=== PATIENT | female | born 1985 | race Caucasian/White ===

== ENCOUNTER 2019-10-28 00:32 | Day surgery (SDC) | payer OTHER, SELFPAY ==
[2019-10-19 10:41] VITALS: BMI 34.6
--- NOTE | 2019-10-28 07:37 | PM.IMHP ---
H&P: HPI History of Present Illness Chief complaint: Irregular Period, Lesion of Buttock Narrative: Adriana Duarte is a 34 year old female presents with c/o heavy, irregular bleeding over past 3 months. Cycles have lasted 7-10d every 2 week with clots and severe dysmenorrhea. US shows enlarged uterus with minimal endometrial hypertrophy. Recent pap N. No other specific GI/ c/o. Also with lesion on buttocks which is itching/burning. Review of Systems Review of Systems: All systems reviewed & are unremarkable except as noted in HPI and below PMFSH Past Medical History Medical History Anxiety Asthma exercise induced as child Depression Surgical History Surgical History History of appendectomy Family History Family History Sibling Carcinoma of colon Family history of lymphoma Father Family history of heart disease in male family member before age 55 Acute myocardial infarction Grandparent Diabetes mellitus Other Hypertension Social History Social History Smoking status: Smoker, status unknown Alcohol intake: never Meds Home Medications and Allergies Home Medications Medication Instructions Recorded Confirmed Type buspirone 10 mg PO DAILY 10/19/19 10/19/19 History fluoxetine 20 mg PO DAILY 10/19/19 10/19/19 History venlafaxine 37.5 mg PO DAILY 10/19/19 10/19/19 History Allergies Allergy/AdvReac Type Severity Reaction Status Date / Time diphenhydramine Allergy Unknown Hives Verified 10/19/19 10:43 Penicillins Allergy Unknown Hives Verified 10/19/19 10:43 Sulfa (Sulfonamide Allergy Unknown Hives Verified 10/19/19 10:43 Antibiotics) Latex, Natural Rubber Allergy SKIN Verified 10/19/19 10:43 IRRITATION Exam Const: General: no acute distress Eyes: General: appearance normal, both eyes and all related structures Resp: Auscultation: clear to auscultation bilaterally Cardio: Rate: regular rate Rhythm: regular rhythm GI: GI Palp: Yes Soft to palpation : External Female Exam: normal external appearance Other: uterus enlarged 10-12 week size. Skin: Lesions: lesion noted (on buttocks) Assessment and Plan Assessment and plan (1) Menometrorrhagia: Code(s): N92.1 - Excessive and frequent menstruation with irregular cycle Status: Acute Assessment and Plan: hysteroscope with curettage (2) Skin lesion: Code(s): L98.9 - Disorder of the skin and subcutaneous tissue, unspecified Status: Acute Assessment and Plan: removal
[2019-10-28 11:03] VITALS: BP 112/66; PULSE 74; RESP 18; TEMP 36.7; O2SAT 100
[2019-10-28] MEDS: LACTATED RINGERS 1,000 ML 30 ML IV CONT (11:40)
--- NOTE | 2019-10-28 12:11 | WPDANESEPPF ---
Anes - Initial Pre Proc Eval Procedure: Operation Date: 10/28/19 13:00 Proposed Procedures p Hysteroscopy Dilation and Curettage - Arjun Owen MD s Excision of Lesion of Buttock - Arjun Owen MD Date/Time: 10/28/19 12:11 Surgeon: Arjun Owen MD Pre Op Diagnosis: Irregular Period, Lesion of Buttock Patient Data Age: 34 Gender: F Height: 1.65 m Weight: 92.8 kg Last Vital Signs Temp 36.7 C 10/28/19 11:03 Pulse 74 10/28/19 11:03 Resp 18 10/28/19 11:03 BP 112/66 10/28/19 11:03 Pulse Ox 100 10/28/19 11:03 Allergies Allergy/AdvReac Type Severity Reaction Status Date / Time diphenhydramine Allergy Unknown Hives Verified 10/28/19 11:45 Penicillins Allergy Unknown Hives Verified 10/28/19 11:45 Sulfa (Sulfonamide Allergy Unknown Hives Verified 10/28/19 11:45 Antibiotics) Latex, Natural Rubber Allergy SKIN Verified 10/28/19 11:45 IRRITATION Home Medications Medication Instructions Recorded Confirmed Type buspirone 10 mg PO DAILY 10/19/19 10/28/19 History fluoxetine 20 mg PO DAILY 10/19/19 10/28/19 History venlafaxine 37.5 mg PO DAILY 10/19/19 10/28/19 History oxycodone-acetaminophen [Percocet] 1 tablet PO Q4H PRN #7 tablet 10/28/19 Rx Patient hx anesthesia problems: none Family hx anesthesia problems: none PMFSH Past Medical History Medical History Anxiety Asthma exercise induced as child Depression Surgical History Surgical History History of appendectomy Family History Family History Sibling Carcinoma of colon Family history of lymphoma Father Family history of heart disease in male family member before age 55 Acute myocardial infarction Grandparent Diabetes mellitus Other Hypertension Social History Social History (System 10/28/19 @ 09:19 by Corrie Burroughs) Smoking status: Smoker, status unknown Alcohol intake: never Anes - Eval Final PreProcedure Day of Procedure 10/28/19 12:11 Patient weight: obese Heart: regular rate and rhythm Lungs: clear to auscultation and normal air movement Airway: Mallampati scale class II Neurological: alert and oriented Last oral intake: >/= 8 hours ASA classification: II Emergent: no Anesthetic plan: proceed Anesthesia type and monitoring: general GIVS and standard monitoring Informed Consent: The patient's anesthetic plan and its attendant risks and benefits were discussed with the patient/family/POA. Questions were solicited and answers provided to the satisfaction of the patient/family/POA.
--- NOTE | 2019-10-28 13:49 | PM.OP ---
Procedure Note - Brief Procedure Note - Brief Date of procedure: 10/28/19 Pre-op diagnosis: Irregular Period, Lesion of Buttock Post-op diagnosis: same Procedure performed: Hysteroscopy with curettings. Removal buttocks lesion Description of procedure: Patient was prepped and draped in the usual sterile manner for this procedure. Skin tag was identified right buttocks injected with lidocaine anesthesia. Tag/polyp was removed without difficulty and the Incision site was rendered hemostatic with 2 0 chromic in a subcuticular manner. Cervix was then dilated to allow hysteroscope to be placed. Endometrial curettings were obtained of the thickened tissue. At this point seizure was considered terminated. Patient was sent to the recovery room in stable condition. Anesthesia: GLMA Surgeon: Arjun Owen MD Estimated blood loss (mL): 10 Drains: No Packing: No Pathology: yes (1. endometrial curettings 2. skin lesion) Complications: No immediate complications Condition: stable Disposition: PACU
[2019-10-28 13:57] VITALS: BP 109/50; PULSE 71; RESP 16; O2SAT 100
[2019-10-28 14:25] VITALS: BP 107/62; PULSE 65
[2019-10-28 14:50] VITALS: BP 112/64; PULSE 63
== END 2019-10-28 15:05 | disposition home or self-care (01) ==
PROVIDERS: PCP Family Medicine; Visit Provider Obstetrics & Gynecology
PROC: 0U5B8ZZ Destruction of Endometrium, Via Natural or Artificial Opening Endoscopic (ICD-10-PCS; CPT 58563; principal; 2019-10-28 13:00)
PROC: (CPT 58558; 2019-10-28 13:00)
DX: N92.6 Irregular menstruation, unspecified (principal); B07.8 Other viral warts; F41.8 Other specified anxiety disorders; E66.9 Obesity, unspecified; Z68.34 Body mass index [BMI] 34.0-34.9, adult
CPT/HCPCS: 58558; 11402; 88305; A9270; J2250; J2405; J2704; J3010; J7120

== ENCOUNTER 2020-11-18 11:46 | Emergency (ER) | payer OTHER, SELFPAY ==
--- NOTE | ~2020-11-18 | XR_ITS ---
XR knee LT 3V 11/18/2020 12:49 INDICATION: Anterior medial knee pain PROCEDURE: 3 views left knee COMPARISON: No prior studies for comparison. FINDINGS: Fracture, dislocation or subluxation is not identified. No significant joint effusion. The soft tissues appear within normal limits. No foreign bodies are identified. IMPRESSION: 1: NO ACUTE BONE OR JOINT ABNORMALITY IDENTIFIED. Reviewed, dictated and finalized at location A.
[2020-11-18 11:53] VITALS: BP 135/88; PULSE 93; RESP 18; TEMP 36.1; O2SAT 99
[2020-11-18 14:02] VITALS: BP 135/76; PULSE 87; RESP 18; O2SAT 100
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
== END 2020-11-18 14:08 | disposition home or self-care (01) ==
PROVIDERS: Emergency Provider Emergency Medicine; PCP Family Medicine
DX: M25.562 Pain in left knee (principal); J45.909 Unspecified asthma, uncomplicated; F32.9 Major depressive disorder, single episode, unspecified; F41.9 Anxiety disorder, unspecified; V49.40XA Driver injured in collision with unspecified motor vehicles in traffic accident, initial encounter
CPT/HCPCS: 73562; 99283

== ENCOUNTER 2021-09-06 10:44 | Outpatient (CLI) | payer OTHER, SELFPAY ==
--- NOTE | ~2021-09-06 | MMUS_ITS ---
US breast biopsy RT w image, MM post biopsy invasive RT EXAMINATION: US GUIDED NEEDLE BIOPSY WITH VAC UUM ASSISTANCE DATE: 09/06/2021 11:48 PLANOGRAPH OPERATOR INDICATION: Right breast mass seen on recent examination. Ultrasound-guided core biopsy is requested to evaluate for malignancy. TECHNIQUE AND FINDINGS: The risks and potential benefits of the procedure were discussed with the patient, and written inform ed consent was obtained. After sterile preparation of the right breast, 1% lidocaine was utilized fo r local anesthesia. 1% lidocaine with epinephrine was used for deep anesthesia. A 10G vacuum-assisted biopsy gun needle was advanced through to the outer edge of the region of inter est from a lateral approach utilizing sonographic guidance. A total of 5 tissue core samples were ob tained through the lesion. An Inrad tissue marker clip was then placed at the biopsy site. Hemostasi s was achieved. The patient tolerated procedure well and there was no evidence of immediate complication. The patien t was given verbal instructions partly is from the department. Right breast mammograms to document t issue marker clip placement. Tissue marker located in the lower outer quadrant of the right breast. T he tissue samples were submitted to surgical pathology for histologic analysis. IMPRESSION: 1. Successful ultrasound-guided vacuum-assisted biopsy of right breast mass with tissue marker place ment. Please refer to pathology report for histologic analysis. Reviewed, dictated and finalized at location A. OGRAPH OPERATOR IMPRESSION: 1. Successful ultrasound-guided vacuum-assisted biopsy of right breast mass wi th tissue marker placement. Please refer to pathology report for histologic garrett lysis.
== END 2021-09-06 10:45 | disposition home or self-care (01) ==
LOC: ANHIMG 10:48
PROVIDERS: PCP Family Medicine; Visit Provider Nurse Practitioner Family
DX: R92.8 Other abnormal and inconclusive findings on diagnostic imaging of breast (principal)
CPT/HCPCS: 19083; 88305; A4648

== ENCOUNTER 2022-06-09 09:00 | Outpatient (CLI) | payer OTHER, SELFPAY ==
--- NOTE | 2022-06-09 09:40 | ECG_ITS ---
Measurements Intervals [place] Rate: 64 P: 43 NH: 143 QRS: 49 QRSD: 89 T: 43 QT: 399 QTc: 412 Interpretive Statements SINUS RHYTHM LOW QRS VOLTAGE IN PRECORDIAL LEADS BORDERLINE ECG NO PREVIOUS ECG AVAILABLE FOR COMPARISON Electronically Signed On 06-09-2022 15:26:22 CDT by Jl Alfaro M.D.
== END 2022-06-09 09:01 | disposition home or self-care (01) ==
PROVIDERS: PCP Family Medicine; Visit Provider Anesthesiology
DX: N92.1 Excessive and frequent menstruation with irregular cycle (principal); F17.200 Nicotine dependence, unspecified, uncomplicated; Z01.818 Encounter for other preprocedural examination; R94.31 Abnormal electrocardiogram [ECG] [EKG]
CPT/HCPCS: 36415; 86850; 86900; 86901; 93005

== ENCOUNTER 2022-06-14 02:24 | Day surgery (SDC) | payer OTHER, SELFPAY ==
--- NOTE | 2022-06-06 16:23 | SUR.PREOP ---
Report to the Outpatient Waiting Room, entrance under the green pavilion located off [facility], at time 0600 on date 06/14/22. OR Time: 0730. Time changes happen often and if your time is changed the preop area will call you the afternoon before. - You and your visitor will be asked to self-screen and do not enter if you have any COVID symptoms. - We encourage only one visitor and NO visitors under age 16 are allowed at this time. Your visitor will receive communication by the phone number that is given day of service. - The patient visitor is requested to social distance or may leave the building when not with patient due to restrictions. - A mask is required within the hospital. Patients may have clear liquids (water, carbonated beverages, clear teas, apple juice) until 3 hours prior to surgery with a maximum of 20 ounces. - NO CLEAR LIQUIDS AFTER 0430 - No food from midnight until time of surgery - Infants may have breast milk until 4 hours before surgery, infant formula 6 hours prior to surgery. - Children will be allowed to drink immediately following surgery. If applicable, please bring a bottle or sippy cup to assist with drinking. Juice, water, soda, and popsicles are readily available. For infants on formula, please bring formula the day of surgery. Pacifiers are allowed. Please no make-up, nail khmer, hairspray, perfume, deodorant, or body powder the day of surgery. No jewelry (including any body piercings) or valuables the day of surgery, leave them at home. Please take a shower or bath the night before, or the morning of, surgery with an antibacterial soap. Wear comfortable, loose fitting clothing. Children are encouraged to wear pajamas. - Jewelry must be removed prior to entering the operating room. Rings and piercings that are not removed may be cut off. - The hospital will not accept responsibility for valuables. - Please leave all valuables, including medications, at home the day of surgery. If you are going home after surgery, a licensed warehouse associate driver must drive you home. - NO public transportation without another adult. - We recommend that an adult stay with you for 24 hours following discharge. - We also recommend that you do not drive, make important decision, drink alcoholic beverages, or take any drugs that were not prescribed by your health care provider for at least 24 hours after your discharge time. For Pediatric surgeries, we recommend two adults accompany the child home. Follow any additional instructions given to you from your surgeon. If you or anyone in your household have experienced Covid symptoms in the past week, please notify your surgeon or the nurse liaison at the phone number below for possible testing. Telephone instructions given to YUSUF LUND and asked if any additional questions and then verbalized understanding. Patient advised to call surgeon office or pre surgery nurse liaison [phone] if any additional questions.
[2022-06-06 16:32] VITALS: BMI 38.2
--- NOTE | 2022-06-13 10:15 | WPDANESEPPF ---
Anes - Initial Pre Proc Eval Procedure: Operation Date: 06/14/22 07:30 Proposed Procedures p Robotic Assisted Total Hysterectomy with Bilateral Salpingectomy - Arjun Owen MD Date/Time: 06/13/22 10:15 Surgeon: Arjun Owen MD Pre Op Diagnosis: menometrorrhagia Patient Data Age: 36 Gender: F Height: 1.65 m Weight: 104.4 kg Allergies Allergy/AdvReac Type Severity Reaction Status Date / Time diphenhydramine Allergy Intermediate Hives Verified 06/06/22 16:15 Latex, Natural Rubber Allergy Mild SKIN Verified 06/06/22 16:15 IRRITATION Penicillins Allergy Unknown Hives Verified 06/06/22 16:15 Sulfa (Sulfonamide Allergy Unknown Hives Verified 06/06/22 08:59 Antibiotics) Home Medications Medication Instructions Recorded Confirmed Type fluoxetine 40 mg capsule (Prozac) 40 mg PO DAILY #90 caps 03/29/22 06/06/22 Rx Patient hx anesthesia problems: none Family hx anesthesia problems: none Results Review: All pre-operative results and documents have been reviewed as part of the pre-operative evaluation. 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 Tobacco abuse Surgical History Surgical History History of appendectomy (02/16/15) History of dilation and curettage 10/28/19 hscope d&c--excision of lesion History of endometrial ablation (03/24/20) History of hand surgery 2004 bone cyst on middle finger removed History of tonsillectomy (~1989) History of tubal ligation (08/02/16) Family History Family History Sibling Carcinoma of colon Family history of lymphoma brother Father Family history of heart disease in male family member before age 55 Acute myocardial infarction Grandparent Diabetes mellitus Acute myocardial infarction paternal grandfather Mother FH: total knee replacement Sibling No problems noted. 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 Gender identity (if verbalized by the patient): Female Sexual Orientation (if Verbalized by the Patient): Straight or Heterosexual Spiritual care concerns: No Anes - Eval Final PreProcedure Day of Procedure 06/13/22 10:15 Patient weight: obese Heart: regular rate and rhythm Lungs: clear to auscultation Airway: Mallampati scale class II Neurological: alert and oriented Last oral intake: >/= 8 hours ASA classification: II Emergent: no Anesthetic plan: proceed Anesthesia type and monitoring: general ETT and standard monitoring Results Review: All pre-operative results and documents have been reviewed as part of the pre-operative evaluation. Informed Consent: The patient's anesthetic plan and its attendant risks and benefits were discussed with the patient/family/POA. Questions were solicited and answers provided to the satisfaction of the patient/family/POA.
[2022-06-14] VITALS (13 sets, daily range): BP systolic 100–124; BP diastolic 58–76; PULSE 59–96; RESP 12–22; TEMP 36.3–37.4; O2SAT 95–100
[2022-06-14] MEDS: ACETAMINOPHEN 500 MG TABLET 1000 MG PO (07:00)
[2022-06-14] MEDS: LACTATED RINGERS 1,000 ML 30 ML IV CONT ×2 (07:00→09:12)
[2022-06-14] MEDS: KETOROLAC 15 MG/ML VIAL (*BKC) IV PUSH (07:00)
--- NOTE | 2022-06-14 07:18 | WPDHPUPDATE1 ---
History and Physical Update Update Date/Time: 06/14/22 07:18 History and Physical has been reviewed, including an updated exam of the patient. There are NO changes in the patient's condition. Risks, benefits, and alternatives have been discussed and questions answered. Patient agrees to proceed with procedure.
[2022-06-14] MEDS: ceFAZolin 2 GM/D5W 50 ML 2 GM/50 ML BAG IVPB (07:31)
--- NOTE | 2022-06-14 09:28 | W.PM.PROC2 ---
Procedure Note - Detailed Date of Procedure 06/14/22 Pre-op Diagnosis 1. Menometrorrhagia 2. Post endometrial ablation syndrome Post-op Diagnosis Same Procedure Performed 1. Robotic assisted laparoscopic total hysterectomy with bilateral salpingectomy Surgeon Arjun Owen MD Anesthesia General Findings 1. Uterus mildly enlarged and globular. 2. Ovaries without abnormality.. 3. Tubal segments noted. Description of Procedure Patient was prepped and draped usual manner for this procedure. Cervical instruments were placed for uterine mobility later in the case. Abdominal sites were then marked and placed under direct visualization. Patient was placed in Trendelenburg position and the DA Liliana system was attached to the trocars. Instruments were placed under direct visualization. Surgeon moved to the console. Evaluation of pelvis noted findings as above. First the mesial salpinx was cauterized and cut and the tubal segments were removed. Round ligaments cauterized and cut. The utero-ovarian ligament cauterized and cut as well. The anterior portion the bladder flap was then dissected without difficulty and the same was done posteriorly. The uterine vessels were skeletonized and once located were cauterized and cut. Anterior cul-de-sac was then entered and circumferentially the cervix was dissected from the vagina. Uterus was delivered into the vagina. Cuff was then closed using V lock suture from the right angle to the midline and from the left angle to the midline. Irrigation was undertaken and the cuff was thoroughly evaluated to be sure there was no oozing or bleeding and there was none. Clara was placed empirically and at this point the procedure was considered terminated. Gas was allowed to escape trocars removed incisions approximated using 4-0 Monocryl. Patient was then sent to recovery room in stable condition. Estimated Blood Loss -100.0 Urine Output -50.0 Drains No Packing No Pathology Yes Condition Stable Disposition PACU [facility] Billing Surgery - Charge Forward: Surgery Billing
[2022-06-14] MEDS: fentaNYL CITRATE INJ (*CRX) 100 MCG/2 ML VIAL 25 MCG IV PUSH ×7 (09:30→10:20)
--- NOTE | 2022-06-14 10:45 | ADMGEN ---
1033- patient, Adriana Duarte, was admitted to OB 2nd Floor Room 283-00. Patient/family oriented to hospital policies and general routines including ID bracelet, bed and alarms, visiting hours, pain management, procedures, bathroom and other care routines, personal items, smoking policy, room service/diet, and visiting hours. Information on how to activate the Rapid Response Team has been discussed. Patient/Family are encouraged to report perceived risks to care and to ask questions if they do not understand what they are told or what they should do.
[2022-06-14] MEDS: DEXTROSE 5%/LACTATED RINGERS 1,000 ML 125 ML IV CONT (11:00)
[2022-06-14] MEDS: KETOROLAC 30 MG/ML VIAL (*BKC) IV PUSH (11:03)
[2022-06-14] MEDS: HYDROcodone/acetaminophen (*CRX) 5-325 MG TABLET 1 TAB PO ×2 (15:15→23:21)
[2022-06-14] MEDS: IBUPROFEN 600 MG TABLET PO ×2 (17:16→23:22)
[2022-06-14] MEDS: SIMETHICONE 80 MG TAB.CHEW PO ×2 (17:17→23:21)
[2022-06-14] MEDS: HYDROcodone/acetaminophen (*CRX) 10-325 MG TABLET 1 TAB PO (18:39)
[2022-06-15 04:35] VITALS: BP 114/83; PULSE 66; RESP 18; TEMP 36.6; O2SAT 99
[2022-06-15] MEDS: SIMETHICONE 80 MG TAB.CHEW PO ×2 (04:37→08:31)
[2022-06-15] MEDS: HYDROcodone/acetaminophen (*CRX) 5-325 MG TABLET 1 TAB PO ×2 (04:57→08:30)
[2022-06-15 06:09] LABS: Basophils Percent Auto 0.2 % (0.2-1.2); Eosinophils Percent Auto 0.1 % (0-4.4); Hematocrit 35.5 % (37.0-47.0); Hemoglobin 11.2 g/dL (12.0-15.0); Immature Granulocyte Absolute 0.03 K/mm3 (0.00-0.031); Immature Granulocyte Percent A 0.3 % (0-0.5); Lymphocytes Absolute Auto 2.76 K/mm3 (0.9-3.2); Lymphocytes Percent Auto 29.3 % (18.3-44.2); Mean Corpuscular HGB Conc 31.5 g/dl (32-36); Mean Corpuscular Hemoglobin 29.5 pg (26-34); Mean Corpuscular Volume 93.4 fl (80-100); Mean Platelet Volume 10.1 fl (7.4-10.4); Monocytes Absolute Auto 0.5 K/mm3 (0.1-0.6); Monocytes Percent Auto 5.5 % (2.6-8.5); Neutrophils Absolute Auto 6.1 K/mm3 (1.3-6.7); Neutrophils Percent Auto 64.6 % (45.5-73.1); Platelet Count Result 280 k/mm3 (150-375); Red Cell Distribution Width 13.6 % (11.5-14.5); White Blood Count 9.4 K/mm3 (4.5-10.0)
[2022-06-15 08:00] VITALS: PULSE 66; RESP 18; O2SAT 99
--- NOTE | 2022-06-15 08:03 | WPDANESPN ---
Anes - Prog Note Post-Op Date/Time: 06/15/22 08:03 Cardiovascular status: normal Respiratory status: normal Airway patency: baseline Mental status: baseline Post-Op hydration status: normal Vital Signs: Last Vital Signs Temp 36.6 C 06/15/22 04:35 Pulse 66 06/15/22 04:35 Resp 18 06/15/22 04:35 BP 114/83 06/15/22 04:35 Pulse Ox 99 06/15/22 04:35 O2 Del Method Room Air 06/15/22 04:35 O2 Flow Rate 8 06/14/22 09:25 Pain Score (VAS): 11/02 I/O: Intake & Output 06/14/22 06/15/22 06/15/22 23:59 07:59 15:59 Intake Total 1100 Output Total 500 Balance 600 Laboratory Tests 06/15/22 05:46 06/15/22 05:46 WBC 9.4 RBC 3.80 L Hgb 11.2 L Hct 35.5 L MCV 93.4 MCH 29.5 MCHC 31.5 L RDW 13.6 Plt Count 280 MPV 10.1 Immature Gran % (Auto) 0.3 Neut % (Auto) 64.6 Lymph % (Auto) 29.3 [place] % (Auto) 5.5 Eos % (Auto) 0.1 Baso % (Auto) 0.2 Lymph # (Auto) 2.76 [place] # (Auto) 0.5 Eos # (Auto) 0.0 Baso # (Auto) 0.0 Abs Immat Gran (auto) 0.03 Absolute Neuts (auto) 6.1 Absolute Nucleated RBC 0.0 Nucleated RBC % 0.0 Post-procedural complaints: none Patient Feedback: Patient satisfied with anesthetic care.
[2022-06-15 08:05] VITALS: BP 105/72; PULSE 57; RESP 18; TEMP 36.5; O2SAT 100
[2022-06-15] MEDS: IBUPROFEN 600 MG TABLET PO (08:30)
== END 2022-06-15 11:18 | disposition home or self-care (01) ==
LOC: ANHSURGERY 07:27 → ANHOB2 10:31
PROVIDERS: PCP Family Medicine; Visit Provider Obstetrics & Gynecology
PROC: (CPT 58571; principal; 2022-06-14 07:30)
DX: N92.1 Excessive and frequent menstruation with irregular cycle (principal); N99.85 Post endometrial ablation syndrome; N72 Inflammatory disease of cervix uteri; F41.9 Anxiety disorder, unspecified; F32.A Depression, unspecified; F17.210 Nicotine dependence, cigarettes, uncomplicated; E66.9 Obesity, unspecified; Z68.37 Body mass index [BMI] 37.0-37.9, adult
CPT/HCPCS: 58571; S2900; 36415; 85025; 86850; 86900; 86901; 88307; 93005; 99199; A9270; J0690; J1100; J1170; J1885; J2250; J2405; J2704; J3010; J7030; J7120; J7121

== ENCOUNTER 2022-11-27 16:39 | Outpatient (CLI) | payer OTHER, SELFPAY ==
--- NOTE | ~2022-11-27 | MM_ITS ---
EXAMINATION: MM screening tavia BI w joseph HISTORY: Screening mammogram TECHNIQUE: Craniocaudal and mediolateral oblique 3-D tomosynthesis images were obtained and synthetic 2-D images were generated. CAD analysis was submitted and interpreted. COMPARISON: 09/06/2021 right ultrasound-guided biopsy 11/18/2020 [facility] bilateral screening mammogram BREAST PARENCHYMAL COMPOSITION: There are scattered areas of fibroglandular density. FINDINGS: There is a biopsy marker at an approximately 2 cm circumscribed mass with halo sign near th e inferolateral left subareolar area, not significant changed in size since 11/18/2020. The mammograph ic features are consistent with benign process. There was a biopsy diagnosis of fibroadenoma. There is no evidence of suspicious mass, calcification, or architectural distortion to suggest malig buster in either breast. There has been no suspicious interval change. IMPRESSION: 1.) Stable benign fibroadenoma. No mammographic evidence of malignancy. 2. Recommend routine screening mammography in one year. BI-RADS Category 2: Benign finding(s). Reviewed, dictated and finalized at location A.
== END 2022-11-27 16:40 | disposition home or self-care (01) ==
PROVIDERS: PCP Family Medicine; Visit Provider Obstetrics & Gynecology
DX: Z12.31 Encounter for screening mammogram for malignant neoplasm of breast (principal); D24.2 Benign neoplasm of left breast
CPT/HCPCS: 77063; 77067

== ENCOUNTER 2023-10-06 08:59 | Emergency (ER) | payer OTHER, SELFPAY ==
--- NOTE | 2023-10-06 09:41 | ED_ITS ---
HPI - URI/Sore Throat General Chief Complaint: Upper Respiratory Infection Stated Complaint: sore throat,chest pains Time Seen by Provider: 10/06/23 09:41 Source: patient Mode of arrival: ambulatory Limitations: no limitations Related Data Home Medications Medication Instructions Recorded Confirmed No Home Medications 10/06/23 10/06/23 Allergies Allergy/AdvReac Type Severity Reaction Status Date / Time diphenhydramine Allergy Intermediate Hives Verified 10/06/23 09:39 Latex, Natural Rubber Allergy Mild SKIN Verified 10/06/23 09:39 IRRITATION Penicillins Allergy Unknown Hives Verified 10/06/23 09:39 Sulfa (Sulfonamide Allergy Unknown Hives Verified 10/06/23 09:39 Antibiotics) [facility] Past Medical History Medical History Abnormal mammogram of right breast Abnormal Pap smear of cervix 2010 +hpv Abnormal ultrasound of breast Anxiety Asthma exercise induced as child BMI 32.0-32.9,adult BMI 34.0-34.9,adult BMI 35.0-35.9,adult BMI 36.0-36.9,adult Depression 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 Tobacco abuse Surgical History Surgical History History of appendectomy (02/16/15) History of dilation and curettage 10/28/19 hscope d&c--excision of lesion History of endometrial ablation (03/24/20) History of hand surgery 2003 bone cyst on middle finger removed History of robot-assisted laparoscopic hysterectomy (06/14/22) RATLH with Bilateral salpingectomy History of tonsillectomy (~1989) History of tubal ligation (08/02/16) Family History Family History Sibling Carcinoma of colon Family history of lymphoma brother Father Family history of heart disease in male family member before age 55 Acute myocardial infarction Grandparent Diabetes mellitus Acute myocardial infarction paternal grandfather Mother FH: total knee replacement Sibling No problems noted. 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
[2023-10-06 09:44] VITALS: BP 101/58; PULSE 79; RESP 20; TEMP 36; O2SAT 99
--- NOTE | 2023-10-06 09:50 | ECG_ITS ---
Measurements Intervals [place] Rate: 65 P: 36 [place]: 152 QRS: 48 QRSD: 82 T: 44 QT: 365 QTc: 381 Interpretive Statements SINUS RHYTHM LOW QRS VOLTAGE IN PRECORDIAL LEADS [QRS DEFLECTION < 1.0 mV IN CHEST LEADS] ANTEROSEPTAL MYOCARDIAL INFARCTION [40+ ms Q WAVE IN V1-V4], OF INDETERMINATE AGE ABNORMAL ECG COMPARED TO ECG 06/09/2022 09:49:15 MYOCARDIAL INFARCT FINDING NOW PRESENT Electronically Signed On 10-06-2023 10:32:07 CREATIVE PERFUMER by Darrell Dennis M.D.
--- NOTE | 2023-10-06 09:59 | ED.CHESTPAIN ---
HPI - Chest Pain General Chief Complaint: Upper Respiratory Infection Stated Complaint: sore throat,chest pains Time Seen by Provider: 10/06/23 09:41 History of Present Illness HPI narrative: 38-year-old female presents with complaint of intermittent midsternal chest tightness for the past 3 days with radiation to back starting yesterday. Patient reports fatigue with mild nausea. Denies cough, congestion. afebrile. Patient reports that her father at age 45 from an MD. all systems reviewed and negative except as noted above. Related Data Home Medications Medication Instructions Recorded Confirmed No Home Medications 10/06/23 10/06/23 Allergies Allergy/AdvReac Type Severity Reaction Status Date / Time diphenhydramine Allergy Intermediate Hives Verified 10/06/23 09:39 Latex, Natural Rubber Allergy Mild SKIN Verified 10/06/23 09:39 IRRITATION Penicillins Allergy Unknown Hives Verified 10/06/23 09:39 Sulfa (Sulfonamide Allergy Unknown Hives Verified 10/06/23 09:39 Antibiotics) Review of Systems Review of Systems: CONSTITUTIONAL: Denies fever, chills, or sweats. reports fatigue. EYES: Denies visual changes, redness, or discharge. ENT: Denies rhinorrhea, congestion, sore throat, or otalgia. CARDIOVASCULAR: Reports chest pain. Denies palpitations, or edema. RESPIRATORY: Denies cough or dyspnea. GASTROINTESTINAL: Denies abdominal pain, nausea, vomiting, or diarrhea. GENITOURINARY: Denies dysuria or hematuria. SKIN: Denies rash or itching. MUSCULOSKELETAL: Denies back pain, joint pain, or myalgia. NEUROLOGIC: Denies headache, numbness, or weakness. PSYCHIATRIC: Denies anxiety or depression. All other systems reviewed are negative, except as documented in HPI. 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 Tobacco abuse Surgical History Surgical History History of appendectomy (02/16/15) History of dilation and curettage 10/28/19 hscope d&c--excision of lesion History of endometrial ablation (03/24/20) History of hand surgery 2003 bone cyst on middle finger removed History of robot-assisted laparoscopic hysterectomy (06/14/22) RATLH with Bilateral salpingectomy History of tonsillectomy (~1989) History of tubal ligation (08/02/16) Family History Family History Sibling Carcinoma of colon Family history of lymphoma brother Father Family history of heart disease in male family member before age 55 Acute myocardial infarction Grandparent Diabetes mellitus Acute myocardial infarction paternal grandfather Mother FH: total knee replacement Sibling No problems noted. 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 There is no relevant family history pertinent to the presenting co
== END 2023-10-06 10:23 | disposition short-term general hospital (02) ==
PROVIDERS: Emergency Provider Nurse Practitioner Family; PCP Family Medicine
DX: R07.9 Chest pain, unspecified (principal); R94.31 Abnormal electrocardiogram [ECG] [EKG]; J45.990 Exercise induced bronchospasm; F41.9 Anxiety disorder, unspecified; F17.210 Nicotine dependence, cigarettes, uncomplicated
CPT/HCPCS: 87880; 93005; 99213; G0463

== ENCOUNTER 2023-10-06 10:49 | Emergency (ER) | payer OTHER, SELFPAY ==
[2023-10-06] VITALS (13 sets, daily range): BP systolic 99–145; BP diastolic 52–87; PULSE 65–79; RESP 13–20; O2SAT 97–100
--- NOTE | ~2023-10-06 | XR_ITS ---
EXAMINATION: XR chest 2V DATE: 10/06/2023 11:27 INDICATION: Mid chest pain. TECHNIQUE: Frontal and lateral views of the chest were obtained. COMPARISON: None. FINDINGS: There is no pneumonia, pleural effusion, or pneumothorax. The heart size is normal. IMPRESSION: 1. No acute cardiopulmonary disease. Reviewed, dictated and finalized at location A. IDE PROPERTY AGENT
--- NOTE | ~2023-10-06 | US_ITS ---
Limited Abdominal Sonogram: Real-time sonographic imaging of the right upper quadrant was performed. Clinical History: Abdominal pain Findings: The liver appears normal with no evidence of mass lesion or bile duct dilatation. Main por abiola vein demonstrates normal direction of flow. The gallbladder is well distended, and contains multi ple echogenic gallstones. No gallbladder wall thickening. The common bile duct measures 3 mm. The vi sualized pancreas, aorta, and IVC are unremarkable. Impression: Cholelithiasis. Reviewed, dictated and finalized at location M. DIPPER Impression: Cholelithiasis.
--- NOTE | 2023-10-06 10:49 | ECG_ITS ---
Measurements Intervals [place] Rate: 77 P: 41 [place]: 149 QRS: 61 QRSD: 76 T: 56 QT: 354 QTc: 402 Interpretive Statements SINUS RHYTHM LOW QRS VOLTAGE IN PRECORDIAL LEADS [QRS DEFLECTION < 1.0 mV IN CHEST LEADS] SEPTAL MYOCARDIAL INFARCTION , OF INDETERMINATE AGE [40+ ms Q WAVE IN V1/V2] ABNORMAL ECG COMPARED TO ECG 10/06/2023 09:57:37 NO SIGNIFICANT CHANGES Electronically Signed On 10-06-2023 11:10:53 RADIOLOGY THERAPIST by Darrell Dennis M.D.
[2023-10-06] MEDS: ASPIRIN 81 MG CHEWABLE TABLET 324 MG PO (11:07)
[2023-10-06 11:25] LABS: Basophils Percent Auto 0.5 % (0.2-1.2); Eosinophils Percent Auto 0.2 % (0-4.4); Hematocrit 43.6 % (37.0-47.0); Hemoglobin 13.9 g/dL (12.0-15.0); Immature Granulocyte Absolute 0.01 K/mm3 (0.00-0.031); Immature Granulocyte Percent A 0.2 % (0-0.5); Lymphocytes Absolute Auto 2.53 K/mm3 (0.9-3.2); Lymphocytes Percent Auto 39.1 % (18.3-44.2); Mean Corpuscular HGB Conc 31.9 g/dl (32-36); Mean Corpuscular Hemoglobin 29.5 pg (26-34); Mean Corpuscular Volume 92.6 fl (80-100); Mean Platelet Volume 10.2 fl (7.4-10.4); Monocytes Absolute Auto 0.4 K/mm3 (0.1-0.6); Neutrophils Absolute Auto 3.5 K/mm3 (1.3-6.7); Platelet Count Result 333 k/mm3 (150-375); Red Blood Count 4.71 M/mm3 (4.2-5.4); Red Cell Distribution Width 12.5 % (11.5-14.5); White Blood Count 6.5 K/mm3 (4.5-10.0)
[2023-10-06] MEDS: MORPHINE SULFATE (*CRX) 2 MG/ML INJ IV PUSH (11:26)
[2023-10-06 11:35] LABS: Alanine Aminotransferase 17 U/L (6-35); Albumin Level 4.5 g/dL (3.5-5.1); Alkaline Phosphatase 87 U/L (38-126); Anion Gap 8 mmol/L (8-16); Aspartate Amino Transferase 31 U/L (14-36); Bilirubin,Total 0.3 mg/dL (0.2-1.3); Blood Urea Nitrogen 9 mg/dL (7-17); Calcium 9.7 mg/dL (8.4-10.2); Carbon Dioxide 29 mmol/L (22-30); Chloride 105 mmol/L (98-107); Estimated CRCL calculation 117 ml/min; Estimated Glomerular Filt Rate > 60; Glucose 90 mg/dL (65-110); Lipase 61 U/L (23-300); Potassium 3.8 mmol/L (3.4-5.0); Sodium 142 mmol/L (137-145)
[2023-10-06 11:37] LABS: Prothrombin Time 13.2 Seconds (11.1-14.7)
[2023-10-06 11:38] LABS: Partial Thromboplastin Time 29.8 SECONDS (22.3-36.8)
[2023-10-06 11:47] LABS: Troponin I < 0.012 ng/mL (0.000-0.034)
--- NOTE | 2023-10-06 12:31 | ED.CHESTPAIN ---
HPI - Chest Pain General Chief Complaint: Chest Pain Stated Complaint: CP x 3 days Time Seen by Provider: 10/06/23 11:13 History of Present Illness HPI narrative: Patient is a 38-year-old female who presents ER with chest pain. Central and pressure type. Radiates to her right shoulder and back. Has mild discomfort with breathing but no dyspnea. No hemoptysis. No leg swelling or calf cramping. Patient has no exertional chest discomfort. Has difficulty identifying alleviating factors. Does not feel it is associated with eating and drinking. No personal history of heart disease but reports her father had an OK at age 45. She goes to the medical screening days at her work in reports no issues with diabetes or hyperlipidemia. Denies having hypertension. Related Data Allergies Allergy/AdvReac Type Severity Reaction Status Date / Time diphenhydramine Allergy Intermediate Hives Verified 10/06/23 09:39 Latex, Natural Rubber Allergy Mild SKIN Verified 10/06/23 09:39 IRRITATION Penicillins Allergy Unknown Hives Verified 10/06/23 09:39 Sulfa (Sulfonamide Allergy Unknown Hives Verified 10/06/23 09:39 Antibiotics) Review of Systems Review of Systems: All systems reviewed & are unremarkable except as noted in HPI and below Constitutional: Constitutional: Reports no additional constitutional complaints ENT: Reports system reviewed and no additional complaints, except as documented Cardiovascular: Cardiovascular: Reports chest pain, Denies rapid heart rate and Reports radiating jaw, neck or arm pain Respiratory: Respiratory: Denies cough, Denies dyspnea and Denies wheezing Gastrointestinal: Gastrointestinal: Reports no additional gastrointestinal complaints Genitourinary: Genitourinary: Reports no additional female genitourinary complaints Integumentary/Breasts: Skin/Breast: Reports system reviewed and no additional complaints, except as docu [facility] Past Medical History Medical History Abnormal mammogram of right breast Abnormal Pap smear of cervix 2010 +hpv Abnormal ultrasound of breast Anxiety Asthma exercise induced as child BMI 32.0-32.9,adult BMI 34.0-34.9,adult BMI 35.0-35.9,adult BMI 36.0-36.9,adult Depression 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 Tobacco abuse Surgical History Surgical History History of appendectomy (02/16/15) History of dilation and curettage 10/28/19 hscope d&c--excision of lesion History of endometrial ablation (03/24/20) History of hand surgery 2003 bone cyst on middle finger removed History of robot-assisted laparoscopic hysterectomy (06/14/22) RATLH with Bilateral salpingectomy History of tonsillectomy (~1989) History of tubal ligation (08/02/16) Family History Family History Sibling Carcinoma of colon Family history of lymphoma brother Father Family history of heart disease in male family member before age 55 Acute myocardial infarction Grandparent Diabetes mellitus Acute myocardial infarction paternal grandfather Mother FH: total knee replacement Sibling No problems noted. 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
--- NOTE | 2023-10-06 13:38 | ECG_ITS ---
Measurements Intervals [place] Rate: 69 P: 38 [place]: 147 QRS: 44 QRSD: 91 T: 35 QT: 390 QTc: 418 Interpretive Statements SINUS RHYTHM LOW QRS VOLTAGE IN PRECORDIAL LEADS [QRS DEFLECTION < 1.0 mV IN CHEST LEADS] POSSIBLE SEPTAL MYOCARDIAL INFARCTION , PROBABLY OLD [30 ms Q WAVE IN V3/V4, OR R < 0.2 mV IN V4] ABNORMAL ECG COMPARED TO ECG 10/06/2023 10:54:51 NO SIGNIFICANT CHANGES Electronically Signed On 10-07-2023 8:36:34 PRESS TENDER SMOKE SIGNAL by Darrell Dennis M.D.
[2023-10-06 14:09] LABS: Troponin I < 0.012 ng/mL (0.000-0.034)
--- NOTE | 2023-10-06 17:12 | ECG_ITS ---
Measurements Intervals [place] Rate: 70 P: 42 [place]: 140 QRS: 42 QRSD: 89 T: 57 QT: 389 QTc: 420 Interpretive Statements SINUS RHYTHM LOW QRS VOLTAGE IN PRECORDIAL LEADS [QRS DEFLECTION < 1.0 mV IN CHEST LEADS] ABNORMAL ECG COMPARED TO ECG 10/06/2023 13:40:57 NO SIGNIFICANT CHANGES Electronically Signed On 10-07-2023 8:38:28 NURSE RECRUITER by Darrell Dennis M.D.
[2023-10-06 17:28] LABS: Troponin I < 0.012 ng/mL (0.000-0.034)
== END 2023-10-06 17:31 | disposition home or self-care (01) ==
PROVIDERS: Emergency Provider Emergency Medicine; PCP Family Medicine
DX: K80.70 Calculus of gallbladder and bile duct without cholecystitis without obstruction (principal); F17.210 Nicotine dependence, cigarettes, uncomplicated; Z90.710 Acquired absence of both cervix and uterus; Z90.79 Acquired absence of other genital organ(s); R94.31 Abnormal electrocardiogram [ECG] [EKG]
CPT/HCPCS: 36415; 71046; 76705; 80053; 83690; 84484; 85025; 85380; 85610; 85730; 87880; 93005; 96374; 99284; A9270; J2270

== ENCOUNTER 2023-10-10 00:27 | Day surgery (SDC) | payer OTHER, SELFPAY ==
[2023-10-09 08:40] VITALS: BMI 33.5
--- NOTE | 2023-10-09 08:45 | PC.NURSE ---
Report to the Outpatient Waiting Room, entrance under the green pavilion located off [facility], at time 0630 on date 10/10/23. Planned Procedure Time: 0830. Time changes happen often and if your time is changed the preop area will call you the afternoon before. - You and your visitor will be asked to self-screen and do not enter if you have any COVID symptoms. - A mask is optional within the hospital at this time. Patients may have clear liquids (water, carbonated beverages, clear teas, apple juice) until 3 hours prior to surgery with a maximum of 20 ounces. - No food from midnight until time of surgery Take the following medications with a SIP of water the morning of surgery: PAIN PILL IF NEEDED DO NOT STOP ANY OF YOUR OTHER PRESCRIPTION MEDICATIONS PRIOR TO SURGERY ?EXCEPT THE FOLLOWING Medications to discontinue per physician: SEMAGLUTIDE Date to take last dose: PT HAD LAST DOSE 09/30/23 Please no make-up, nail occitan, hairspray, perfume, deodorant, or body powder the day of surgery. No jewelry (including any body piercings) or valuables the day of surgery, leave them at home. Please take a shower or bath the night before, or the morning of, surgery with an antibacterial soap. Wear comfortable, loose fitting clothing. - Jewelry must be removed prior to entering the operating room. Rings and piercings that are not removed may be cut off. - The hospital will not accept responsibility for valuables. - Please leave all valuables, including medications, at home the day of surgery. If you are going home after surgery, a licensed flatbed truck driver must drive you home. - NO public transportation without another adult if you receive anesthesia. - We recommend that an adult stay with you for 24 hours following discharge. - We also recommend that you do not drive, make important decision, drink alcoholic beverages, or take any drugs that were not prescribed by your health care provider for at least 24 hours after your discharge time. Follow any additional instructions given to you from your surgeon. If you or anyone in your household have experienced Covid symptoms in the past week, please notify your surgeon or the nurse liaison at the phone number below for possible testing. Telephone instructions given to PT - YUSUF LUND and asked if any additional questions and then verbalized understanding. Patient advised to call surgeon office or pre surgery nurse liaison [phone] if any additional questions.
[2023-10-10] VITALS (9 sets, daily range): BP systolic 112–121; BP diastolic 38–84; PULSE 64–92; RESP 13–18; TEMP 36.2–37.2; O2SAT 99–100
--- NOTE | 2023-10-10 07:27 | WPDHPUPDATE1 ---
History and Physical Update Update Date/Time: 10/10/23 07:27 History and Physical has been reviewed, including an updated exam of the patient. There are NO changes in the patient's condition. Risks, benefits, and alternatives have been discussed and questions answered. Patient agrees to proceed with procedure.
[2023-10-10 07:45] LABS: Amylase 67 U/L (30-110)
--- NOTE | 2023-10-10 07:51 | WPDANESEPPF ---
Anes - Initial Pre Proc Eval Procedure: Operation Date: 10/10/23 08:30 Proposed Procedures p Laparoscopic Cholecystectomy - Darling Harris MD Date/Time: 10/10/23 07:51 Surgeon: Darling Harris MD Pre Op Diagnosis: chronic cholecystitis with cholelithiasis Patient Data Age: 38 Gender: F Height: 1.63 m Weight: 88.5 kg Allergies Allergy/AdvReac Type Severity Reaction Status Date / Time diphenhydramine Allergy Intermediate Hives Verified 10/09/23 08:38 Latex, Natural Rubber Allergy Mild SKIN Verified 10/09/23 08:38 IRRITATION Penicillins Allergy Unknown Hives Verified 10/09/23 08:38 Sulfa (Sulfonamide Allergy Unknown Hives Verified 10/09/23 08:38 Antibiotics) Home Medications Medication Instructions Recorded Confirmed Type hydrocodone 5 mg-acetaminophen 325 1 tablet PO Q6H PRN pain #20 tabs 10/06/23 10/09/23 Rx mg tablet ondansetron 4 mg disintegrating 4 mg PO Q6H PRN nausea and 10/06/23 10/09/23 Rx tablet vomiting #10 tabs semaglutide (weight loss) 0.25 0.25 mg subcut WEEKLY 10/07/23 10/08/23 History mg/0.5 mL subcutaneous pen injector Laboratory Tests 10/10/23 07:30 Amylase 67 U/L (30-110) Patient hx anesthesia problems: none Family hx anesthesia problems: none Results Review: All pre-operative results and documents have been reviewed as part of the pre-operative evaluation. 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 Tobacco abuse Surgical History Surgical History History of appendectomy (02/16/15) History of dilation and curettage 10/28/19 hscope d&c--excision of lesion History of endometrial ablation (03/24/20) History of hand surgery 2003 bone cyst on middle finger removed History of robot-assisted laparoscopic hysterectomy (06/14/22) RATLH with Bilateral salpingectomy History of tonsillectomy (~1989) History of tubal ligation (08/02/16) Family History Family History Sibling Carcinoma of colon Family history of lymphoma brother Father Family history of heart disease in male family member before age 55 Acute myocardial infarction Grandparent Diabetes mellitus Acute myocardial infarction paternal grandfather Mother FH: total knee replacement Sibling No problems noted. 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 Gender identity (if verbalized by the patient): Female Sexual Orientation (if Verbalized by the Patient): Straight or Heterosexual Spiritual care concerns: No Anes - Eval Final PreProcedure Day of Procedure 10/10/23 07:51 Patient weight: obese Heart: regular rate and rhythm Lungs: clear to auscultation Airway: Mallampati scale class II Neurological: alert and oriented Last oral intake: >/= 8 hours ASA classification: II Emergent: no Anesthetic plan: proceed Anesthesia type and monitoring: general ETT and standard monitoring Results Review: All pre-operative results and documents have been reviewed as part of the pre-operative evaluation.
[2023-10-10] MEDS: KETOROLAC 15 MG/ML VIAL (*BKC) IV PUSH (07:55)
[2023-10-10] MEDS: ACETAMINOPHEN 500 MG TABLET 1000 MG PO (07:55)
[2023-10-10] MEDS: LACTATED RINGERS 1,000 ML 30 ML IV CONT ×2 (07:55→09:53)
[2023-10-10] MEDS: ceFAZolin 2 GM/D5W 50 ML 2 GM/50 ML BAG IVPB (08:25)
[2023-10-10] MEDS: BUPIVACAINE/EPINEPHRINE 0.5% 30 ML VIAL INFILTRATE (08:46)
--- NOTE | 2023-10-10 09:14 | W.PM.PROC2 ---
Procedure Note - Detailed Date of Procedure 10/10/23 Pre-op Diagnosis cholecystitis with cholelithiasis Post-op Diagnosis Same Procedure Performed Laparoscopic cholecystectomy Surgeon Darling Harris MD Anesthesia General Indications 38-year-old female presented to the office complaining of postprandial right upper quadrant abdominal pain associated with nausea and vomiting. Workup including imaging significant for cholecystitis, cholelithiasis. Findings Cholecystitis with cholelithiasis Description of Procedure The patient was taken to the operating room placed in the supine position. After adequate induction of general anesthesia, the patient was prepped and draped in normal sterile fashion. A time-out was then performed to verify the patient's identity as well as the procedure being performed. I then made a 5 mm incision in the infraumbilical region. Through this, a Veress needle was placed into the peritoneal cavity and CO2 gas was then insufflated. After adequate pneumoperitoneum was achieved, the Veress needle was removed and a 5 mm optiview trocar was placed through this incision under direct visualization. I then placed the laparoscope through this trocar site and under direct visualization placed a further 12 mm subxiphoid port as well as 2 additional 5 mm ports in the right upper abdomen. The gallbladder was then identified and was noted to be inflamed and distended. I was able to place a grasper at the dome of the gallbladder and this was retracted anterior and cephalad up over the liver. A 2nd retractor was then placed at the infundibulum and retracted laterally, this allowed visualization of the triangle of Calot. I then was able to visualize the cystic duct in its entirety from its proximal insertion into the gallbladder, to its distal junction with the common hepatic/common bile duct junction. At this point, I carefully skeletonized the proximal cystic duct with the [place] dissector. I then clipped and transected the proximal cystic duct. Next I visualized the cystic artery. Again the artery was skeletonized, clipped, and transected. I then used the Bovie cautery to take down the peritoneal attachments of the gallbladder off the liver bed. This was somewhat difficult given the amount of inflammation in the posterior space. Once the gallbladder specimen was completely detached, an endo-pouch was placed through the 12 mm port site. I then placed the gallbladder specimen into the Endo pouch and removed the endo-pouch from the 12 mm port site. The specimen will now be sent to pathology for further review. I then copiously irrigated the right upper quadrant. Some mild oozing was noted in the liver bed and this was controlled with the bovie cautery. Hemostasis was noted in the liver bed, the clips were noted to be in good position on both the cystic duct stump and the cystic artery stump. No other pathology was noted in the right upper quadrant. I then moved the laparoscope to the subxiphoid port. No iatrogenic injury or other pathology was noted in the lower abdomen. I then closed the 12 mm trocar site under direct visualization using the David cone and 0 Vicryl suture. At this point, the abdomen was desufflated and all ports removed. All port sites were then closed with 4.O Monocryl subcuticular sutures. Dermabond was placed on each incision. The patient tolerated the procedure well, was extubated in the operating room postoperative and will be transferred to the recovery room in stable condition Estimated Blood Loss 10 Drains No Packing No Pathology Yes Complications No immediate complications Condition Stable Disposition PACU [facility] Billing Surgery - Charge Forward: Surgery Billing
[2023-10-10] MEDS: fentaNYL CITRATE INJ (*CRX) 100 MCG/2 ML VIAL 25 MCG IV PUSH (09:29)
[2023-10-10] MEDS: oxyCODONE HCL (*CRX) 5 MG TAB IR PO (10:40)
== END 2023-10-10 11:34 | disposition home or self-care (01) ==
PROVIDERS: PCP Family Medicine; Visit Provider Surgery
PROC: 0FT44ZZ Resection of Gallbladder, Percutaneous Endoscopic Approach (ICD-10-PCS; CPT 47562; principal; 2023-10-10 08:30)
DX: K80.20 Calculus of gallbladder without cholecystitis without obstruction (principal); Z79.85 Long-term (current) use of injectable non-insulin antidiabetic drugs; F17.210 Nicotine dependence, cigarettes, uncomplicated; E66.9 Obesity, unspecified; Z68.32 Body mass index [BMI] 32.0-32.9, adult
CPT/HCPCS: 47562; 36415; 82150; 88304; A9270; J0690; J1100; J1885; J2250; J2371; J2405; J3010; J7030; J7120

== ENCOUNTER 2024-02-19 10:24 | Emergency (ER) | payer OTHER, SELFPAY ==
[2024-02-19 10:41] VITALS: BP 119/82; PULSE 81; RESP 16; TEMP 36.8; O2SAT 100
--- NOTE | 2024-02-19 10:44 | ED.CHESTPAIN ---
HPI - Chest Pain General Chief Complaint: Chest Pain Stated Complaint: CHEST PAIN Time Seen by Provider: 02/19/24 10:48 Mode of arrival: ambulatory Limitations: no limitations History of Present Illness HPI narrative: 38-year-old female presents with concern for acute onset of chest pain overnight that woke her up from sleeping. She reports at the time she had several episodes of vomiting. Reports since then she has had intermittent waves of chest pain, heaviness, left shoulder and arm pain. She reports history of heavy smoking, family history of sudden cardiac . She reports she had similar symptoms in September and ended up having biliary colic and had her gallbladder removed. She denies any shortness of breath, cough MD complaint: chest pain Related Data Allergies Allergy/AdvReac Type Severity Reaction Status Date / Time diphenhydramine Allergy Intermediate Hives Verified 01/08/24 16:15 Latex, Natural Rubber Allergy Mild SKIN Verified 01/08/24 16:15 IRRITATION Penicillins Allergy Unknown Hives Verified 01/08/24 16:15 Sulfa (Sulfonamide Allergy Unknown Hives Verified 01/08/24 16:15 Antibiotics) Review of Systems Review of Systems: CONSTITUTIONAL: Denies malaise, chills, sweats, or fever. ENT: Denies rhinorrhea, congestion, sinus pain, otalgia or sore throat. CARDIOVASCULAR: Reports left-sided chest pain. Denies palpitations, or edema. RESPIRATORY: Denies cough or dyspnea. GASTROINTESTINAL: Denies abdominal pain. 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 Tobacco abuse Surgical History Surgical History History of appendectomy (02/16/15) History of dilation and curettage 10/28/19 hscope d&c--excision of lesion History of endometrial ablation (03/24/20) History of hand surgery 2003 bone cyst on middle finger removed History of laparoscopic cholecystectomy 10/10/23 PDC History of robot-assisted laparoscopic hysterectomy (06/14/22) RATLH with Bilateral salpingectomy History of tonsillectomy (~1989) History of tubal ligation (08/02/16) Family History Family History Sibling Carcinoma of colon Family history of lymphoma brother Father Family history of heart disease in male family member before age 55 Acute myocardial infarction AAA (abdominal aortic aneurysm) Grandparent Diabetes mellitus Acute myocardial infarction paternal grandfather Mother FH: total knee replacement Sibling Brain tumor Other Hypertension Social History Social History Smoking packs per day: 1 Smoking cigarettes per day: 20.0 Years smoked: 24 Smoking pack-years: 24.00 Smoking status: Current every day smoker Tobacco type: cigarettes Second hand tobacco smoke exposure: No Alcohol intake: never Substance use: never Substance use type: does not use Do You Feel Safe in your Home?: Yes Lack of Transportation: No Lack of Food: Never True Current Housing: I Have Housing Concerned About Future Housing: No Difficulty Paying Gas/Electric Bills: No Difficulty Paying for Meds: No Currently Unemployed: No Education: Trade/Vocational Certificate Difficulty w/ Childcare or Family Care: No Living arrangements:
--- NOTE | 2024-02-19 12:57 | ECG_ITS ---
Test Date: 2024-02-19 10:40:17 Measurements Intervals [place] Rate: 72 P: 34 IA: 154 QRS: 53 QRSD: 81 T: 43 QT: 378 QTc: 414 Interpretive Statements SINUS RHYTHM LOW QRS VOLTAGE IN PRECORDIAL LEADS [QRS DEFLECTION < 1.0 mV IN CHEST LEADS] SEPTAL MYOCARDIAL INFARCTION [40+ ms Q WAVE IN V1/V2], OF INDETERMINATE AGE No previous ECG available for comparison Electronically Signed On 02-19-2024 13:09:50 CDT by Elizabeth Santana M.D.
== END 2024-02-19 11:14 | disposition short-term general hospital (02) ==
PROVIDERS: Emergency Provider Nurse Practitioner; PCP Family Medicine
DX: R07.9 Chest pain, unspecified (principal); F17.210 Nicotine dependence, cigarettes, uncomplicated; J45.909 Unspecified asthma, uncomplicated
CPT/HCPCS: 93005; 99213; G0463

== ENCOUNTER 2024-02-19 11:42 | Emergency (ER) | payer OTHER, SELFPAY ==
--- NOTE | ~2024-02-19 | XR_ITS ---
XR chest 2V Ordering provider: Kobi Monique III, DO History: 38 years Female with . chest pain . Comparison: October 06, 2023 FINDINGS: MEDIASTINUM: The cardiac silhouette is not enlarged. LUNGS: No infiltrates, effusions or pneumothorax. OTHER: No free air under the diaphragm. IMPRESSION: No acute cardiopulmonary pathology. Reviewed, dictated and finalized at location A.
--- NOTE | 2024-02-19 11:45 | ECG_ITS ---
Test Date: 2024-02-19 11:51:35 Measurements Intervals [place] Rate: 64 P: 39 IA: 147 QRS: 46 QRSD: 88 T: 39 QT: 390 QTc: 403 Interpretive Statements SINUS RHYTHM LOW QRS VOLTAGE IN PRECORDIAL LEADS [QRS DEFLECTION < 1.0 mV IN CHEST LEADS] No previous ECG available for comparison Electronically Signed On 02-19-2024 11:56:58 CDT by Elizabeth Santana M.D.
[2024-02-19 11:50] VITALS: BP 120/80; PULSE 74; RESP 20; TEMP 37; O2SAT 100
[2024-02-19 12:09] LABS: Basophils Percent Auto 0.4 % (0.2-1.2); Hematocrit 42.2 % (37.0-47.0); Immature Granulocyte Absolute 0.02 K/mm3 (0.00-0.031); Immature Granulocyte Percent A 0.2 % (0-0.5); Lymphocytes Absolute Auto 2.22 K/mm3 (0.9-3.2); Lymphocytes Percent Auto 26.2 % (18.3-44.2); Mean Corpuscular HGB Conc 33.2 g/dl (32-36); Mean Corpuscular Hemoglobin 29.9 pg (26-34); Mean Platelet Volume 9.9 fl (7.4-10.4); Monocytes Absolute Auto 0.6 K/mm3 (0.1-0.6); Monocytes Percent Auto 6.6 % (2.6-8.5); Neutrophils Absolute Auto 5.6 K/mm3 (1.3-6.7); Neutrophils Percent Auto 66.6 % (45.5-73.1); Platelet Count Result 306 k/mm3 (150-375); Red Blood Count 4.69 M/mm3 (4.2-5.4); Red Cell Distribution Width 13.2 % (11.5-14.5); White Blood Count 8.5 K/mm3 (4.5-10.0)
--- NOTE | 2024-02-19 12:09 | ED.CHESTPAIN ---
HPI - Chest Pain General Chief Complaint: Chest Pain Stated Complaint: chest pain Time Seen by Provider: 02/19/24 11:52 History of Present Illness HPI narrative: Pt presents with left sided chest tightness since 0300 this morning. Pt says the tightness had been constant since 030 but waxes and wanes in severity from a 1/10 t a 4/10. Pt has had some left shoulder and back tightness over the last week and is unsure if this is related. Pt had similar episode in September and was diagnosed with gallstones and had GB removed. Pt has FH with father dying of MA in mid 40's and is smoker. Related Data Allergies Allergy/AdvReac Type Severity Reaction Status Date / Time diphenhydramine Allergy Intermediate Hives Verified 02/19/24 11:55 Latex, Natural Rubber Allergy Mild SKIN Verified 02/19/24 11:55 IRRITATION Penicillins Allergy Unknown Hives Verified 02/19/24 11:55 Sulfa (Sulfonamide Allergy Unknown Hives Verified 02/19/24 11:55 Antibiotics) Review of Systems Review of Systems: All systems reviewed & are unremarkable except as noted in HPI and below PMFSH Past Medical History Medical History Abnormal mammogram of right breast Abnormal Pap smear of cervix 2010 +hpv Abnormal ultrasound of breast Anxiety Asthma exercise induced as child BMI 32.0-32.9,adult BMI 33.0-33.9,adult BMI 34.0-34.9,adult BMI 35.0-35.9,adult BMI 36.0-36.9,adult Depression 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 Tobacco abuse Surgical History Surgical History History of appendectomy (02/16/15) History of dilation and curettage 10/28/19 hscope d&c--excision of lesion History of endometrial ablation (03/24/20) History of hand surgery 2003 bone cyst on middle finger removed History of laparoscopic cholecystectomy 10/10/23 PDC History of robot-assisted laparoscopic hysterectomy (06/14/22) RATLH with Bilateral salpingectomy History of tonsillectomy (~1989) History of tubal ligation (08/02/16) Family History Family History Sibling Carcinoma of colon Family history of lymphoma brother Father Family history of heart disease in male family member before age 55 Acute myocardial infarction AAA (abdominal aortic aneurysm) Grandparent Diabetes mellitus Acute myocardial infarction paternal grandfather Mother FH: total knee replacement Sibling Brain tumor Other Hypertension Social History Social History Smoking packs per day: 1 Smoking cigarettes per day: 20.0 Years smoked: 24 Smoking pack-years: 24.00 Smoking status: Current every day smoker Tobacco type: cigarettes Second hand tobacco smoke exposure: No Alcohol intake: never Substance use: never Substance use type: does not use Do You Feel Safe in your Home?: Yes Lack of Transportation: No Lack of Food: Never True Current Housing: I Have Housing Concerned About Future Housing: No Difficulty Paying Gas/Electric Bills: No Difficulty Paying for Meds: No Currently Unemployed: No Education: Trade/Vocational Certificate Difficulty w/ Childcare or Family Care: No Living arrangements: with family Additional living arrangements comments: Occupation/Education: occupation 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
[2024-02-19 12:19] LABS: Alanine Aminotransferase 27 U/L (6-35); Albumin Level 4.9 g/dL (3.5-5.1); Alkaline Phosphatase 114 U/L (38-126); Anion Gap 8 mmol/L (4-12); Aspartate Amino Transferase 27 U/L (14-36); Bilirubin,Total 0.5 mg/dL (0.2-1.3); Blood Urea Nitrogen 9 mg/dL (7-17); Calcium 9.2 mg/dL (8.4-10.2); Carbon Dioxide 25 mmol/L (22-30); Chloride 106 mmol/L (98-107); Estimated CRCL calculation 139 ml/min; Estimated Glomerular Filt Rate > 60; Glucose 93 mg/dL (65-110); INR 1.1; Lipase 56 U/L (23-300); Potassium 3.9 mmol/L (3.4-5.0); Prothrombin Time 14.8 Seconds (11.1-14.7); Sodium 139 mmol/L (137-145)
[2024-02-19 12:20] LABS: Partial Thromboplastin Time 30.6 Seconds (22.3-36.8)
[2024-02-19 12:26] VITALS: PULSE 72
[2024-02-19 12:30] LABS: Troponin I < 0.012 ng/mL (0.000-0.034)
[2024-02-19 12:33] VITALS: O2SAT 97
[2024-02-19] MEDS: KETOROLAC 15 MG/ML VIAL (*BKC) IV PUSH (12:43)
[2024-02-19 12:44] VITALS: BP 120/80; PULSE 71; RESP 19; O2SAT 99
[2024-02-19 13:31] VITALS: BP 105/56; PULSE 71; RESP 15; O2SAT 98
== END 2024-02-19 13:38 | disposition home or self-care (01) ==
PROVIDERS: Emergency Provider Emergency Medicine; PCP Family Medicine
DX: R07.89 Other chest pain (principal); F17.200 Nicotine dependence, unspecified, uncomplicated; Z90.49 Acquired absence of other specified parts of digestive tract; Z90.79 Acquired absence of other genital organ(s); Z90.710 Acquired absence of both cervix and uterus
CPT/HCPCS: 36415; 71046; 80053; 83690; 84484; 85025; 85610; 85730; 93005; 96374; 99284; J1885

== ENCOUNTER 2024-04-01 11:20 | Emergency (ER) | payer OTHER, SELFPAY ==
[2024-04-01 11:30] VITALS: BP 104/68; PULSE 70; RESP 18; TEMP 36.5; O2SAT 99
--- NOTE | 2024-04-01 11:39 | ED.URI ---
HPI - URI/Sore Throat General Chief Complaint: Upper Respiratory Infection Stated Complaint: cold symptoms Time Seen by Provider: 04/01/24 11:39 Source: patient Mode of arrival: ambulatory Limitations: no limitations History of Present Illness HPI Narrative: 38 yo F presents with c/o cough, nasal congestion, fatigue for 2 days. States whenever she gets sick it's hard to get better due to being a smoker . Afebrile. Taking over the counter meds without relief. all system reviewed and negative except as noted above. Related Data Allergies Allergy/AdvReac Type Severity Reaction Status Date / Time diphenhydramine Allergy Intermediate Hives Verified 04/01/24 11:29 Latex, Natural Rubber Allergy Mild SKIN Verified 04/01/24 11:29 IRRITATION Penicillins Allergy Unknown Hives Verified 04/01/24 11:29 Sulfa (Sulfonamide Allergy Unknown Hives Verified 04/01/24 11:29 Antibiotics) Review of Systems Review of Systems: CONSTITUTIONAL: Denies fever, chills, or sweats. EYES: Denies visual changes, redness, or discharge. ENT: Reports rhinorrhea, congestion. Denies sore throat, or otalgia. CARDIOVASCULAR: Denies chest pain, palpitations, or edema. RESPIRATORY: reports cough. Denies dyspnea. GASTROINTESTINAL: Denies abdominal pain, nausea, vomiting, or diarrhea. GENITOURINARY: Denies dysuria or hematuria. SKIN: Denies rash or itching. MUSCULOSKELETAL: Denies back pain, joint pain, or myalgia. NEUROLOGIC: Denies headache, numbness, or weakness. PSYCHIATRIC: Denies anxiety or depression. All other systems reviewed are negative, except as documented in HPI. 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 Tobacco abuse Surgical History Surgical History History of appendectomy (02/16/15) History of dilation and curettage 10/28/19 hscope d&c--excision of lesion History of endometrial ablation (03/24/20) History of hand surgery 2003 bone cyst on middle finger removed History of laparoscopic cholecystectomy 10/10/23 PDC History of robot-assisted laparoscopic hysterectomy (06/14/22) RATLH with Bilateral salpingectomy History of tonsillectomy (~1989) History of tubal ligation (08/02/16) Family History Family History Sibling Carcinoma of colon Family history of lymphoma brother Father Family history of heart disease in male family member before age 55 Acute myocardial infarction AAA (abdominal aortic aneurysm) Grandparent Diabetes mellitus Acute myocardial infarction paternal grandfather Mother FH: total knee replacement Sibling Brain tumor Other Hypertension Social History Social History Smoking packs per day: 1 Smoking cigarettes per day: 20.0 Years smoked: 24 Smoking pack-years: 24.00 Smoking status: Current every day smoker Tobacco type: cigarettes Second hand tobacco smoke exposure: No Alcohol intake: never Substance use: never Substance use type: does not use Do You Feel Safe in your Home?: Yes Lack of Transportation: No Lack of Food: Never True Current Housing: I Have Housing Concerned About Future Housing: No Difficulty Paying Gas/Electric Bills: No Difficulty Paying for Meds: No Currently Unemployed: No Education: Trade/Vocational Certificate Difficulty w/ Childcare or Family Care: No Living arrangements: with family Additional living arrangements comments: Occupation/Education: occupation 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
== END 2024-04-01 11:55 | disposition home or self-care (01) ==
PROVIDERS: Emergency Provider Nurse Practitioner Family; PCP Family Medicine
DX: J40 Bronchitis, not specified as acute or chronic (principal); J01.90 Acute sinusitis, unspecified; Z20.822 Contact with and (suspected) exposure to COVID-19; F17.210 Nicotine dependence, cigarettes, uncomplicated; J45.990 Exercise induced bronchospasm
CPT/HCPCS: 87426; 99213; G0463

== ENCOUNTER 2024-08-27 17:12 | Emergency (ER) | payer OTHER, SELFPAY ==
--- NOTE | 2024-08-27 17:16 | ED.URI ---
HPI - URI/Sore Throat General Chief Complaint: Upper Respiratory Infection Stated Complaint: congestion Time Seen by Provider: 08/27/24 17:39 Source: patient, RN notes reviewed and old records reviewed Mode of arrival: ambulatory Limitations: no limitations History of Present Illness HPI Narrative: patient presents with complaints of URI symptoms that began about 1 week ago. She reports initially she had a runny nose and sore throat, the symptoms have since resolved. She reports that now she has a cough that is lingering. She has had occasional wheezes. She is not taking anything for her symptoms. She is speaking in full sentences, no respiratory distress. She does report that her son tested positive for COVID couple of weeks ago, patient has tested twice and has been negative both times. She has no other concerns or complaints today Related Data Allergies Allergy/AdvReac Type Severity Reaction Status Date / Time diphenhydramine Allergy Mild Hives Verified 08/27/24 17:26 Latex, Natural Rubber Allergy Mild SKIN Verified 08/27/24 17:26 IRRITATION Penicillins Allergy Mild Hives Verified 08/27/24 17:26 Sulfa (Sulfonamide Allergy Mild Hives Verified 08/27/24 17:26 Antibiotics) Review of Systems Review of Systems: All systems reviewed & are unremarkable except as noted in HPI and below Constitutional: Constitutional: Reports no additional constitutional complaints ENT: Reports system reviewed and no additional complaints, except as documented Cardiovascular: Cardiovascular: Reports no additional cardiovascular complaints Respiratory: Respiratory: Reports no additional respiratory complaints, Reports cough and Reports wheezing Gastrointestinal: Gastrointestinal: Reports no additional gastrointestinal complaints PMFSH Past Medical History Medical History (Updated 08/27/24 @ 17:48 by Judie Gonzalez APRN) Depression 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 Abnormal Pap smear of cervix 2010 +hpv Abnormal ultrasound of breast Abnormal mammogram of right breast Tobacco abuse Depression Anxiety Asthma exercise induced as child Surgical History Surgical History History of laparoscopic cholecystectomy 10/10/23 PDC History of robot-assisted laparoscopic hysterectomy (06/14/22) RATLH with Bilateral salpingectomy History of endometrial ablation (03/24/20) History of dilation and curettage 10/28/19 hscope d&c--excision of lesion History of tubal ligation (08/02/16) History of hand surgery 2004 bone cyst on middle finger removed History of tonsillectomy (~1989) History of appendectomy (02/16/15) Family History Family History Sibling Carcinoma of colon Family history of lymphoma brother Father Family history of heart disease in male family member before age 55 Acute myocardial infarction AAA (abdominal aortic aneurysm) Grandparent Diabetes mellitus Acute myocardial infarction paternal grandfather Mother FH: total knee replacement Sibling Brain tumor Other Hypertension Social History Social History Smoking packs per day: 1 Smoking cigarettes per day: 20.0 Years smoked: 24 Smoking pack-years: 24.00 Smoking status: Current every day smoker Tobacco type: cigarettes Second hand tobacco smoke exposure: No Alcohol intake: never Substance use: never Substance use type: does not use Do You Feel Safe in your Home?: Yes Lack of Transportation: No Lack of Food: Never True Current Housing: I Have Housing Concerned About Future Housing: No Difficulty Paying Gas/Electric Bills: No Difficulty Paying for Meds: No Currently Unemployed: No Education: Trade/Vocational Certificate Difficulty w/ Childcare or Family Care: No Living arrangements: with family Additional living arrangements comments: Occupation/Education: occupation 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 There is no relevant family history pertinent to the patient complaint. Exam Const: General: cooperative, no acute distress, alert and awake Orientation/consciousness: oriented to person, oriented to place and oriented to time HENMT: Head: normal to inspection Ears: TM's normal bilaterally Mouth: Yes moist mucous membranes Throat: postnasal drainage Resp: Effort & Inspection: normal respiratory effort and able to speak in complete sentences Auscultation: clear to auscultation bilaterally, no crackles, no rales, no rhonchi and no wheezes Cardio: Palpation: normal PMI Rate: regular rate Rhythm: regular rhythm Heart sounds: S1 normal heart sound present and S2 normal heart sound present Neuro: General: oriented to person, oriented to place and oriented to time Cranial nerves: Yes CN's II-XII intact bilaterally Psych: Appearance: grossly normal Thought process: Normal thought process present Insight: Good insight present (Psych) Judgement: Good judgement present (Psych) Course Course Level of Care: Express Care Visit Vital Signs Vital signs: Reviewed MDM - URI/Sore Throat MDM Narrative Medical decision making narrative: patient with reassuring physical exam, no distress. Start prednisone and albuterol to better manage symptoms. patient nontoxic appearing, stable for discharge home Differential Diagnosis Differential diagnosis: Likely upper respiratory infection, viral infection and bronchitis Medical Records Attestation: I reviewed the patient's medical records. Discharge Plan Discharge Clinical Impression: URI (upper respiratory infection) Qualifiers: URI type: unspecified viral URI Qualified Code(s): J06.9 - Acute upper respiratory infection, unspecified Patient Disposition: Home, Self-Care Condition: Stable Instructions: Antibiotic Form, Viral Syndrome (ED) Additional Instructions: take medications as prescribed. Follow with primary care provider. Emergency department for new or worse symptoms Patient Language: Afghan Prescriptions: New prednisone 50 mg tablet 50 mg PO DAILY Qty: 5 0RF albuterol sulfate [Ventolin HFA] 90 mcg/actuation HFA aerosol inhaler 2 puff inhalation QID PRN (Reason: shortness of breath or wheezing) Qty: 8.5 0RF No Action fluoxetine 40 mg capsule 40 mg PO DAILY Qty: 90 3RF venlafaxine [Effexor XR] 37.5 mg capsule,extended release 24hr 37.5 mg PO QPM Qty: 30 2RF Follow-up/Referrals: Buster Oropeza MD [Primary Care Provider] - 2 Weeks Time of Disposition: 17:48
[2024-08-27 17:23] VITALS: BP 125/60; PULSE 89; RESP 16; TEMP 36.5; O2SAT 99
== END 2024-08-27 17:52 | disposition home or self-care (01) ==
PROVIDERS: Emergency Provider Nurse Practitioner Family; PCP Family Medicine
DX: J06.9 Acute upper respiratory infection, unspecified (principal); F17.210 Nicotine dependence, cigarettes, uncomplicated
CPT/HCPCS: 99213; G0463

== ENCOUNTER 2025-03-10 09:36 | Outpatient (CLI) | payer OTHER, SELFPAY ==
--- NOTE | ~2025-03-10 | MM_ITS ---
EXAMINATION: MM screening tavia BI w joseph HISTORY: Screening TECHNIQUE: Craniocaudal and mediolateral oblique 3-D tomosynthesis images were obtained and synthetic 2-D images were generated. CAD analysis was submitted and interpreted. COMPARISON: Comparison to multiple prior studies sequentially, with oldest reviewed study dated Lee rison to multiple prior studies sequentially, with oldest reviewed study dated 11/18/2020. . BREAST PARENCHYMAL COMPOSITION: Not dense: There are scattered areas of fibroglandular density. FINDINGS: Stable mass, previously biopsy-proven benign fibroadenoma, in the lower outer quadrant of t he right breast anteriorly. No new masses are identified. There is no evidence of suspicious mass, ca lcification, or architectural distortion to suggest malignancy in either breast. There has been no valdez spicious interval change. IMPRESSION: 1. No mammographic evidence of malignancy. 2. Recommend routine screening mammography in one year. BI-RADS Category 2: Benign finding(s). Reviewed, dictated and finalized at location B.
--- OUTSIDE RECORDS SUMMARY | 2025-03-10 09:41 | XMS_ITS | Encounter Summary ---
Author Organization [facility] Address [address] [place] [address] Care Team Providers Care School Psychology Specialist Name Role Phone Buster Oropeza MD Primary Care Provider [phone] Encounter Details Date Type Department Care Team (Latest Contact Info) Description 02/09/2025 Results Follow-Up [facility] [employer] [place] [address] [place] [address] Snehal Acosta, ANP [id number] [facility] [address] [place] [address] TSH, LIPID PANEL, COMPREHENSIVE METABOLIC PANEL, CBC WITH DIFFERENTIAL Social History Tobacco Use Types Packs/Day Years Used Date Smoking Tobacco: Every Day Cigarettes 1 20 Smokeless Tobacco: Never Alcohol Use Standard Drinks/Week Comments Not Currently 0 (1 standard drink = 0.6 oz pur e alcohol) Comments No Sex and Gender Information Value Date Recorded Sex Assigned at Not on file 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 Patient verbalized understanding. * Result Encounter Note - Snehal Acosta ANP - 02/09/2025 8:52 AM CDT Contact patient regarding result. Cholesterol off balance. Other labs good. Advise pt to share with PCP for advice. documented in this encounter Plan of Treatment Not on file documented as of this encounter Visit Diagnoses Not on filedocumented in this encounter Additional Health Concerns Assessment Noted Time PHQ-9 Depression Total Score: 6 01/06/20 24 3:00 PM CDT documented as of this encounter Care Teams School Psychology Specialist Relationship Specialty Start Date End Date Buster Oropeza MD [address] [place] [address] PCP - General Family Practice 11/08/22 documented as of this encounter
--- OUTSIDE RECORDS SUMMARY | 2025-03-10 09:42 | XMS_ITS | Patient Health Record ---
Author Organization [facility] Address [address] [facility] [address] [place] [address] Care Team Providers Care Building Components Designer Name Role Phone Jens Funes Unavailable [phone] Reason For Referral No Information Medications Medication SIG (Take, Route, Fr equency, Duration) Notes Start Date End Date Status miSOPROStol 200 MCG Oral 03/30/2021 Active FLUoxetine HCl 20 MG Oral 03/30/2021 Active Nortriptyline HCl 25 MG Oral 03/30/2021 Active Immunizations Vaccine Route Administration Date Status Comme nts Influenza virus vaccine, quadrivalent (IIV4), split virus, 0.25 mL dosage Unknown 05/26/2018 Administered Pfizer Biontech Covid-19 Vac cine 2nd dose Unknown 11/28/2020 Administered Pfizer Biontech Covid-19 Vac cine 2nd dose Unknown 12/20/2020 Administered Tdap Unknown 01/16/2016 Administered Plan Of Treatment No Information
--- OUTSIDE RECORDS SUMMARY | 2025-03-10 09:42 | XMS_ITS | Clinical Summary ---
Author Organization [facility] [address] Address [address] [place] [address] Care Team Providers Care Contractor Buyer Name Role Phone Buster Oropeza MD Primary Care Provider [phone] Allergies Active Allergy Reactions Criticality Noted Date Comments Benadryl Decongestant Hives High 08/13/2018 Diphenhydramine Hives High 09/02/2017 As child Penicillins Hives,Urticaria High 09/02/2017 Sulfa (Sulfonamide Antibiotics) Hives High 07/26 Sulfasalazine Hives High 09/02/2017 Medications albuterol HFA (PROVENTIL HFA,VENTOLIN HFA,PROAIR HFA) 90 mcg/actuation inhaler INHALE 2 PUFFS BY MOUTH FOUR TIMES DAILY NEEDED FOR SHORTNESS OF BREATH OR WHEEZING 5 Active venlafaxine XR (EFFEXOR-XR) 37.5 mg 24 hr capsule Take 1 capsule (37.5 mg total) by mouth every evening 5 Active benzonatate (TESSALON) 200 mg capsuleIndicati ons:Subacute cough Take 1 capsule (200 mg total) by mouth 3 (three) times a day as needed for cough 30 capsule 5 Active Active Problems Problem Noted Date Diagnosed Date Other chest pain 03/26/2024 CHRIS (generalized anxiety disorder) 09/17/2019 Family History Medical History Relation Name Comments Hodgkin's lymphoma Brother Heart attack Father Prostate cancer Maternal Grandfather Skin cancer Maternal Grandfather Relation Name Status Comments Brother Father Maternal Grandfather Social History Tobacco Use Types Packs/Day Years Used Date Smoking Tobacco: Every Day Cigarettes Comments Unknown Sex and Gender Information Value Date Recorded Sex Assigned at Not on file Legal Sex Female 1:10 AM 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 TECH Gender Identity Not on file Sexual Orientation Not on file Obstetrics History Last Filed Vital Signs Vital Sign Reading Time Taken Comments Blood Pressure 118/89 11/02/2024 12:06 PM CDT Pulse 102 11/02/2024 12:06 PM CDT Temperature 36.9 C (98.4 F) 11/02/2024 12:06 PM CDT Respiratory Rate 14 11/02/2024 12:06 PM CDT Oxygen Saturation 97% 11/02/2024 12:06 PM CDT Inhaled Oxygen Concentration - - Weight 96.2 kg (212 lb) 11/02/2024 12:06 PM CDT Height 162.6 cm (5' 4) 11/02/2024 12:06 PM CDT Body Mass Index 36.39 11/02/2024 12:06 PM CDT Plan of Treatment Health Maintenance Due Date Last Done Comments Breast Cancer Screening-Mammogram 1984 Cervical Cancer Screening 1984 Depression Screening 1984 Hepatitis C Screening 1984 Varicella Vaccines (1 of 2 - 13+ 2-dose series) 1997 Hepatitis B Screening 2002 Regular Well Visit/Exam 18-64 2002 Pneumococcal vaccine <65 (1 of 2 - PCV) 2003 Covid-19 Vaccine ( - 2023-2 5 season) 2024 08/30/2021, 12/20/2020, 11/28/2020 Influenza Vaccine (Season Ended) 2025 05/31/2021, 05/30/2020, 06/04/2019 DTaP/Tdap/Td Vaccine (2 - Td or Tdap) 01/15/2026 01/16/2016 HPV Vaccines Aged Out No longer eligi ble based on patient's age to complete this topic Insurance [employer] Care Teams Contractor Buyer Relationship Specialty Start Date End Date Buster Oropeza MD [address] [place] [address] PCP - General Family Medicine 11/02/24
--- OUTSIDE RECORDS SUMMARY | 2025-03-10 09:42 | XMS_ITS | Clinical Summary ---
Author Organization [facility] [employer] [facility] Address [address] [place] [address] Care Team Providers Care Computer Systems Design Analyst Name Role Phone Buster Oropeza MD Primary Care Provider [phone] Source Comments [facility] [employer] [facility],non-owned Affiliates and Associated Physician Practices is amultiple site organization consisting of ambulatory clinics and hospital sitesin [place], [place], [place] and [place]. This disclosure is being madepursuant to the Care Everywhere program and may not contain all information available regarding this patient. Last updated 18.[facility] [employer] [facility] Allergies Active Allergy Reactions Criticality Noted Date Comments Diphenhydramine 09/02/2017 As child Penicillins Urticaria Medium 09/02/2017 Sulfa Drugs 09/02/2017 As child Medications * Be aware that medications may not be up to date on this document. Alwaysverify current medications with the patient. FLUOXETINE HCL PO Ac tive ciprofloxacin 0.3% (CILOXAN) 0.3 % ophthalmic solutionIndications :Mucopurulent conjunctivitis of right eye Instill 1 drop into right eye every 2 hours while awake x2 days, then q4 hours while awake x5 days 5 mL 8 Active Family History Medical History Relation Name Comments Lymphoma Brother CAD (Coronary Artery Disease) Father 40 Relation Name Status Comments Brother Father Social History Tobacco Use Types Packs/Day Years Used Date Smoking Tobacco: Every Day Smokeless Tobacco: Never Comments No Sex and Gender Information Value Date Recorded Sex Assigned at Not on file Legal Sex Female 6:34 PM MANAGER RESPIRATORY CARE Gender Identity Not on file Sexual Orientation Not on file Last Filed Vital Signs Vital Sign Reading Time Taken Comments Blood Pressure 118/78 09/02/2017 9:25 AM MANAGER RESPIRATORY CARE Pulse 64 09/02/2017 9:25 AM MANAGER RESPIRATORY CARE Temperature 36.8 C (98.3 F) 09/02/2017 9:25 AM MANAGER RESPIRATORY CARE Respiratory Rate 16 09/02/2017 9:25 AM MANAGER RESPIRATORY CARE Oxygen Saturation 99% 09/02/2017 9:25 AM MANAGER RESPIRATORY CARE Inhaled Oxygen Concentration - - Weight 90.7 kg (200 lb) 09/02/2017 9:25 AM MANAGER RESPIRATORY CARE Height 167.6 cm (5' 6) 09/02/2017 9:25 AM MANAGER RESPIRATORY CARE Body Mass Index 32.28 09/02/2017 9:25 AM MANAGER RESPIRATORY CARE Plan of Treatment Health Maintenance Due Date Last Done Comments LIPID TESTING 1984 MAMMOGRAM 1984 HIV SCREENING 1999 HEPATITIS C SCREENING 10/02/2002 DTAP/TDAP/TD VACCINES (1 - Tdap) 2003 HEPATITIS B VACCINE (1 of 3 - 19+ 3-dose series) 2003 PNEUMOCOCCAL VACCINE (1 of 2 - PCV) 2003 PAP SMEAR 2005 HPV VACCINE (1 - 3-dose SCDM series) 2011 COVID-19 VACCINE (1 - 2023-2 5 season) 2024 DEPRESSION SCREENING 08/26/2024 INFLUENZA VACCINE (#1) 2025 ZOSTER VACCINE (1 of 2) 2034 HIB VACCINE Aged Out No longer eligi ble based on patient's age to complete this topic MENINGOCOCCAL (Group B) VACC INE SHARED DECISION-MAKING Aged Out No longer eligibl e based on patient's age to complete this topic MENINGOCOCCAL GROUPS A/C/Y/W VACCINE Aged Out No longer eligible b ased on patient's age to complete this topic Insurance [facility] CIGNA SELF PAY NO INSURANCE Member Subscriber Plan / Payer (Ef fective for All Dates) Name:Yusuf Lund Member ID:Not on file Relation to Subscriber:Not on file Name:KEVONYUSUF Subscriber ID:Not on file Address: [address] [place] [address] Payer ID:Not on file Group ID:Not on file Type:Self Pay Address: [place], [place] CIGNA SELF PAY NO INSURANCE Member Subscriber Plan / Payer (Ef fective for All Dates) Name:Yusuf Lund Member ID:Not on file Relation to Subscriber:Not on file Name:YUSUF LUND Subscriber ID:Not on file Address: [address] [place], [place] [id number] Payer ID:Not on file Group ID:Not on file Type:Self Pay Address: [place], [place] CIGNA SELF PAY NO INSURANCE Member Subscriber Plan / Payer (Ef fective for All Dates) Name:Yusuf Lund Member ID:Not on file Relation to Subscriber:Not on file Name:YUSUF LUND Subscriber ID:Not on file Address: [address] [place], [place] [id number] Payer ID:Not on file Group ID:Not on file Type:Self Pay Address: [place], [place] CIGNA SELF PAY NO INSURANCE Member Subscriber Plan / Payer (Ef fective for All Dates) Name:Yusuf Lund Member ID:Not on file Relation to Subscriber:Not on file Name:YUSUF LUND Subscriber ID:Not on file Address: [address] [place], [place] [id number] Payer ID:Not on file Group ID:Not on file Type:Self Pay Address: [place], [place] CIGNA SELF PAY NO INSURANCE Member Subscriber Plan / Payer (Ef fective for All Dates) Name:Yusuf Lund Member ID:Not on file Relation to Subscriber:Not on file Name:YUSUF LUND Subscriber ID:Not on file Address: [place] [address] Payer ID:Not on file Group ID:Not on file Type:Self Pay Address: [place], [place] Care Teams Computer Systems Design Analyst Relationship Specialty Start Date End Date Buster Oropeza MD [address] [place] [id number] PCP - General 09/07/21
--- OUTSIDE RECORDS SUMMARY | 2025-03-10 09:42 | XMS_ITS | Encounter Summary ---
Author Organization [facility] Address [address] [place] [address] Care Team Providers Care X Ray Service Technician Name Role Phone Buster Oropeza MD Primary Care Provider [phone] Encounter Details Date Type Department Care Team (Late st Contact Info) Description 03/09/2025 External Device Data [facility] ABSTRACTION Provider, Abstract NO ADDRESS ON FILE Social History Tobacco Use Types Packs/Day Years Used Date Smoking Tobacco: Every Day Cigarettes 1 20 Smokeless Tobacco: Never Alcohol Use Standard Drinks/Week Comments Not Currently 0 (1 standard drink = 0.6 oz pur e alcohol) Comments No Sex and Gender Information Value Date Recorded Sex Assigned at Not on file Legal Sex Female 11:08 AM MANAGER OF CASE Gender Identity Not on file Sexual Orientation Not on file documented as of this encounter Plan of Treatment Not on file documented as of this encounter Visit Diagnoses Not on filedocumented in this encounter Additional Health Concerns Assessment Noted Time PHQ-9 Depression Total Score: 6 01/06/20 24 3:00 PM CDT documented as of this encounter Care Teams X Ray Service Technician Relationship Specialty Start Date End Date Buster Oropeza MD [address] [place] [address] PCP - General Family Practice 11/08/22 documented as of this encounter
--- OUTSIDE RECORDS SUMMARY | 2025-03-10 09:42 | XMS_ITS | Clinical Summary ---
Author Organization 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 Gender Identity Not on file Sexual Orientation Not on file Plan of Treatment Health Maintenance Due Date Last Done Comments Hepatitis C Virus (HCV) Screening 1984 Human Papillomavirus (HPV) Immunization (1 - 3-dose series) 1999 Hepatitis B Immunization (1 of 3 - 19+ 3-dose series) 2003 Pap Smear 2005 Cervical Cancer Screening (CCS) 2014 HPV/Cotest 2014 SARS-COV-2 Immunization ( season) 2024 08/30/2021, 12/20/2020, 11/28/2020 Influenza Immunization (#1) 04/26/202501/2021, 05/30/2020, 06/04/2019 Respiratory Syncytial Virus (RSV) Immunization (Adult) (1 - 1-dose 75+ series) 2059 DTaP/Tdap/Td Immunization Discontinued 01/16/2016 TdaP Immunization Completed 01/16/2016 Meningococcal Immunization (ACWY) Aged Out No longer eligible based on patient's age to complete this topic Pneumococcal Immunization Combined Aged Out No longer eligible based on patient's age to complete this topic Rotavirus Immunization Aged Out No lo nger eligible based on patient's age to complete this topic
--- OUTSIDE RECORDS SUMMARY | 2025-03-10 09:42 | XMS_ITS | Clinical Summary ---
Author Organization [facility] Address [address] [place] [address] Care Team Providers Care Gifted Teacher Name Role Phone Buster Oropeza MD Primary Care Provider [phone] Allergies Active Allergy Reactions Criticality Noted Date Comments Benadryl Decongestant Hives High 08/13/2018 Diphenhydramine Hives High 09/02/2017 Penicillins Hives High 09/02/2017 Sulfa (Sulfonamide Antibiotics) Hives High 07/26 Sulfasalazine Hives High 09/02/2017 Medications FLUoxetine (PROzac) 20 mg capsule Take 1 Capsule by mouth daily. Active Active Problems Problem Noted Date Diagnosed Date CHRIS (generalized anxiety disorder) 09/17/2019 Tobacco use 08/13/2018 Encounters Date Type Department Care Team Description 03/09/2025 External Device Data [facility] ABSTRACTION Provider, Abstract 02/09/2025 External Device Data [facility] ABSTRACTION Provider, Abstract 02/09/2025 Results Follow-Up [facility] [address] [address] Snehal Acosta, LUCRECIA TSH, LIPID PANEL, COMPREHENSIVE METABOLIC PANEL, CBC WITH DIFFERENTIAL 02/08/2025 9:20 AM CDT Office Visit [facility] [address] [place] [address] Screening for condition (Primary Dx) 01/14/2025 External Device Data [facility] ABSTRACTION Provider, Abstract 01/12/2025 External Device Data [facility] ABSTRACTION Provider, Abstract from Last 3 Months Immunizations Immunization Administration Dates Next Due INFLUENZA VACCINE QUADRIVALENT 3 YR UP PF IM 05/2019 INFLUENZA VACCINE QUADRIVALENT 6 MOS UP PF IM ,05/30/2020 Family History Medical History Relation Name Comments Cancer Brother Walter , Non-h otchkins lymphoma Depression Father Nhan Heart Attack Father Nhan Heart Disease Father Nhan , hear t attack Cancer Half-Brother Non-Hodgkin's L ymphoma Cancer Maternal Grandfather Brenden Skin Cancer Maternal Grandfather Brenden Unknown Maternal Grandmother No Known Problems Mother Heart Attack Paternal Grandfather Unknown Paternal Grandmother Asthma Sister Philly Valvular Heart Disease Sister Philly No Known Problems Son 1 No Known Problems Son 2 Relation Name Status Comments Brother Walter Justin Half-Brother Maternal Grandfather Brenden Maternal Grandmother Mother Alive Paternal Grandfather Paternal Grandmother Sister Philly Alive Son 1 Alive Son 2 Alive Social History Tobacco Use Types Packs/Day Years Used Date Smoking Tobacco: Every Day Cigarettes 1 20 Smokeless Tobacco: Never Tobacco Cessation:Ready to Q uit: Not Asked; Counseling Given: Not Answered Alcohol Use Standard Drinks/Week Comments Not Currently 0 (1 standard drink = 0.6 oz pur e alcohol) Comments No Sex and Gender Information Value Date Recorded Sex Assigned at Not on file Legal Sex Female 11:08 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 Gender Identity Not on file Sexual Orientation Not on file Last Filed Vital Signs Vital Sign Reading Time Taken Comments Blood Pressure 126/84 02/08/2025 9:14 AM CDT Pulse 66 01/06/2024 2:17 PM CDT Temperature 36.6 C (97.8 F) 01/06/2024 2:17 PM CDT Respiratory Rate 18 01/06/2024 2:17 PM CDT Oxygen Saturation 98% 01/06/2024 2:17 PM CDT Inhaled Oxygen Concentration - - Weight 95.7 kg (211 lb) 02/08/2025 9:14 AM CDT Height 162.6 cm (5' 4) 02/08/2025 9:14 AM CDT Body Mass Index 36.22 02/08/2025 9:14 AM CDT Plan of Treatment Health Maintenance Due Date Last Done Comments Pre-Diabetes and Diabetes Screening 1984 DTAP/TDAP/TD VACCINES (1 - Tdap) 2003 HEPATITIS B VACCINES (1 of 3 - 19+ 3-dose series) 2003 HPV/Cotest (21-29) 2005 HPV/Cotest (30-65) 2014 CERVICAL CANCER SCREENING 10/15/2022 PAP SMEAR 10/15/2022 10/15/2019 COVID-19 Vaccine (2 - season) 2024 08/30/2021 BREAST CANCER SCREENING 2024 INFLUENZA VACCINE (#1) 2025 , 05/30/2020, 06/04/2019 HPV VACCINES Aged Out No longer eligi ble based on patient's age to complete this topic Procedures Procedure Name Priority Date/Time Associated Diagnosis Comments CBC WITH DIFFERENTIAL Routine 02/08/2025 9:04 AM CDT Screening for condition COMPREHENSIVE METABOLIC PANEL Routine 02/08/2025 9:04 AM CDT Screening for condition LIPID PANEL Routine 02/08/2025 9:04 AM CDT Screening for condition TSH Routine 02/08/2025 9:04 AM CDT Screening for condition from Last 3 Months Results * (ABNORMAL) CBC WITH DIFFERENTIAL (02/08/2025 9:04 AM CDT) WBC 7.3 3.8 - 10.8 Thousand/u L [facility] RBC 4.76 3.80 - 5.10 Million/uL [facility] HEMOGLOBIN 14.0 11.7 - 15.5 g/dL [facility] HEMATOCRIT 44.1 35.0 - 45.0 % [facility] MCV 92.6 80.0 - 100.0 fL [facility] MCH 29.4 27.0 - 33.0 pg [facility] MCHC 31.7(L) 32.0 - 36.0 g/dL [facility] Comment: For adults, a slight decrease in the calculated MCHC value (in the range of 30 to 32 g/dL) is most likely not clinically significant; however, it should be interpreted with caution in correlation with other red cell parameters and the patient's clinical condition. RDW 13.4 11.0 - 15.0 % [facility] PLATELETS 366 140 - 400 Thousand/u L [facility] MPV 10.4 7.5 - 12.5 fL [facility] NEUTROPHIL ABSOLUTE 4,745 1,500 - 7,800 cells/uL [facility] LYMPHOCYTE ABSOLUTE 2,037 850 - 3,900 cells/uL [facility] MONOCYTE ABSOLUTE 489 200 - 950 cells/uL [facility] EOSINOPHIL ABSOLUTE 7(L) 15 - 500 cells/uL [facility] BASOPHILS ABSOLUTE 22 0 - 200 cells/uL [facility] NEUTROPHIL 65 % [facility] LYMPHOCYTES 27.9 % [facility] MONOCYTE 6.7 % [facility] EOSINOPHILS 0.1 % [facility] BASOPHILS 0.3 % [facility] Comment: Test Performed at: [facility] [address] [place] [address] Radha Lopez MD Blood 02/08/2025 9:04 AM CDT 02/09/2025 3:12 AM CDT Snehal Acosta [facility] HEMATOLOGY ORDERABLES Final Result [facility] [phone] [facility] [address] [place] [address] * TSH (02/08/2025 9:04 AM CDT) TSH 1.12 mIU/L [facility] Comment: Reference Range > or = 20 Years 0.40-4.50 Ranges First trimester 0.26-2.66 Second trimester 0.55-2.73 Third trimester 0.43-2.91 Test Performed at: [facility] [address] [facility] [place] [address] Radha Lopez MD Blood 02/08/2025 9:04 AM CDT 02/09/2025 3:12 AM CDT us Snehal Acosta [facility] CHEMISTRY ORDERABLES Final R esult [facility] [phone] [facility] [address] * (ABNORMAL) LIPID PANEL (02/08/2025 9:04 AM CDT) CHOLESTEROL 181 <200 mg/dL [facility] HDL 42(L) > OR = 50 mg/dL [facility] TRIGLYCERIDE 192(H) <150 mg/dL [facility] LDL CALCULATED 108(H) mg/dL (calc) [facility] Comment: Reference range: <100 Desirable range <100 mg/dL for primary prevention; <70 mg/dL for patients with CHD or diabetic patients with > or = 2 CHD risk factors. LDL-C is now calculated using the Baldo-Figueroa calculation, which is a validated novel method providing better accuracy than the Friedewald equation in the estimation of LDL-C. Baldo SS et al. BOY. 2013;310(19): 3229-9225 (http://education.Helpful Technologies/faq/NBC573) CHOL/HDL RATIO 4.3 <5.0 (calc) [facility] NON-HDL CHOLESTEROL 139(H) <130 mg/dL (calc) [facility] Comment: For patients with diabetes plus 1 major ASCVD risk factor, treating to a non-HDL-C goal of <100 mg/dL (LDL-C of <70 mg/dL) is considered a therapeutic option. Test Performed at: [facility] [place] [address] Radha Lopez MD Blood 02/08/2025 9:04 AM CDT 02/09/2025 3:12 AM CDT us Snehal Little Dave ANP CHEMISTRY ORDERABLES Final R esult [facility] [phone] [facility] [address] [place] [address] * COMPREHENSIVE METABOLIC PANEL (02/08/2025 9:04 AM CDT) GLUCOSE 83 65 - 99 mg/dL [facility] Comment: Fasting reference interval BUN 8 7 - 25 mg/dL [facility] CREATININE 0.73 0.50 - 0.99 mg/dL [facility] GFR 107 > OR = 60 mL/min/1. 73m2 [facility] BUN/CREAT RATIO SEE NOTE: 6 - 22 (calc) [facility] Comment: Not Reported: BUN and Creatinine are within reference range. SODIUM 138 135 - 146 mmol/L [facility] POTASSIUM 4.5 3.5 - 5.3 mmol/L [facility] CHLORIDE 102 98 - 110 mmol/L [facility] CO2 29 20 - 32 mmol/L [facility] CALCIUM 9.6 8.6 - 10.2 mg/dL [facility] TOTAL PROTEIN 7.3 6.1 - 8.1 g/dL [facility] ALBUMIN 4.5 3.6 - 5.1 g/dL [facility] GLOBULIN 2.8 1.9 - 3.7 g/dL (calc) [facility] ALBUMIN/GLOBULIN RATIO 1.6 1.0 - 2.5 (calc) [facility] BILIRUBIN TOTAL 0.3 0.2 - 1.2 mg/dL [facility] ALKALINE PHOSPHATASE 108 31 - 125 U/L [facility] AST 18 10 - 30 U/L [facility] ALT 19 6 - 29 U/L [facility] Comment: Test Performed at: [facility] [address] [place] [address] Radha Lopez MD Blood 02/08/2025 9:04 AM CDT 02/09/2025 3:12 AM CDT us Snehal Little Dave ANP CHEMISTRY ORDERABLES Final R esult [facility] [phone] [facility] [address] [address] [phone] from Last 3 Months Insurance [employer] OPEN ACCESS [employer] OPEN ACCESS * Guarantor: [employer] Account Type Relation to Patient Date of Phone Billing Address Corporate Employer ATTN: AMY SAEED [address] [address] Care Teams Gifted Teacher Relationship Specialty Start Date End Date Buster Oropeza MD [address] [place] [address] PCP - General Family Practice 11/08/22
--- OUTSIDE RECORDS SUMMARY | 2025-03-10 09:42 | XMS_ITS | Referral Summary ---
Author Organization [facility] [address] Address [address] [place] [address] Care Team Providers Care Sign Maker Name Role Phone Buster Oropeza MD Primary Care Provider [phone] Allergies Active Allergy Reactions Criticality Noted Date [...] pain 03/26/2024 CHRIS (generalized anxiety disorder) 09/17/2019 Social History Tobacco Use Types Packs/Day Years Used Date Smoking Tobacco: Every Day Cigarettes Comments Unknown Sex and Gender Information Value Date Recorded Sex Assigned at Not on file Legal Sex Female 1:10 AM YACHT CAPTAIN Gender Identity Not on file Sexual Orientation [...] 11/02/2024 12:06 PM CDT Plan of Treatment Not on file Insurance [employer] Care Teams Sign Maker Relationship Specialty Start Date End Date Buster Oropeza MD [address] [place] [address] PCP - General Family Medicine 11/02/24
== END 2025-03-10 09:37 | disposition home or self-care (01) ==
LOC: ANHIMG 09:37
PROVIDERS: PCP Family Medicine; Visit Provider Family Medicine
DX: Z12.31 Encounter for screening mammogram for malignant neoplasm of breast (principal)
CPT/HCPCS: 77063; 77067